=== PATIENT | male | born 1935 | race Caucasian/White ===

== ENCOUNTER 2021-11-07 08:55 | Outpatient (CLI) | payer MEDICARE, MEDICAID, SELFPAY ==
[2021-11-07 09:02] VITALS: BMI 24.0
[2021-11-07 09:47] VITALS: BP 148/66; PULSE 76; RESP 18; TEMP 36.9; O2SAT 97
[2021-11-07 11:10] VITALS: BP 150/72; PULSE 70; RESP 19; TEMP 36.7; O2SAT 98
== END 2021-11-07 08:56 | disposition home or self-care (01) ==
PROVIDERS: Visit Provider Nurse Practitioner
DX: U07.1 COVID-19 (principal)
CPT/HCPCS: 96365

== ENCOUNTER → 2023-07-08 15:39 | Outpatient (BNVA) | payer MEDICARE, MEDICAID, SELFPAY | PROVIDERS: PCP Family Medicine; Visit Provider Dermatology | DX: L82.1 Other seborrheic keratosis (principal); L57.0 Actinic keratosis; L57.8 Other skin changes due to chronic exposure to nonionizing radiation; L81.4 Other melanin hyperpigmentation; D23.112 Other benign neoplasm of skin of right lower eyelid, including canthus | CPT/HCPCS: 17000; 17003; 99213 ==

== ENCOUNTER 2024-07-14 17:37 | Inpatient (IN) | payer MEDICARE, MEDICAID, SELFPAY ==
[2024-07-14 18:03] VITALS: BP 163/76; PULSE 74; RESP 16; TEMP 36.7; O2SAT 96
--- NOTE | 2024-07-14 18:05 | XRR_ITS ---
PROCEDURE INFORMATION: Exam: XR Chest Exam date and time: 07/14/2024 10:00 PM Age: 88 years old Clinical indication: Chest wall pain; Additional info: Chest pain TECHNIQUE: Imaging protocol: Radiologic exam of the chest. Views: 1 view. COMPARISON: CR XR cervical spine 3V* [id number] 04/13/2024 12:26 PM FINDINGS: Lungs: No focal consolidation. Scattered calcified granulomas. Pleural spaces: No sizable pleural effusion. No pneumothorax. Heart/Mediastinum: Unremarkable cardiomediastinal silhouette. Bones/joints: There are moderate degenerative changes of the acromioclavicular joints. There are moderate degenerative changes of the glenohumeral joints. Soft tissues: Soft tissues are unremarkable as visualized. XR/XR chest 1V portable [id number] IMPRESSION: No acute findings.
--- NOTE | 2024-07-14 18:06 | P.HP_ITS ---
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 Blood counts checked in office showed decrease in hemoglobin of about 1.7 points from prior testing done about a week earlier. He has not had melena or hematochezia, but stool sample was positive for occult blood on testing. He additionally has developed new anginal symptoms with central chest pain radiating to his bilateral neck or so on the left with symptoms more persistent on the left side, triggered by exertion, relieved by rest starting on Friday, and since then has had 3 episodes. These are new. He has never had chest pain or pressure before. Does not have personal history of cardiac disease, although as mentioned has had some fatigability over the last several months, but otherwise no history of IL or stroke in himself. He does have history of IL and stroke in his first-degree relatives. He is a never smoker. He reports that ever since having COVID about a year ago he has had some mild dry cough which gets worse at night, sometimes coughs up some white thin foamy phlegm. Denies any aspiration with food or drink. Review of Systems Const: Reports: fatigue; Denies: fever(s), chills, body aches or malaise ENMT: Denies: throat pain or ear or mastoid pain Card: Reports: chest pain; Denies: edema, pre-syncope or dyspnea on exertion Resp: Denies: dyspnea, productive cough, change in phlegm color or hemoptysis GI: Denies: abdominal pain, nausea, vomiting, diarrhea, constipation, hematochezia or melena : Denies: flank pain, difficulty urinating, urinary frequency or hematuria Musc: Denies: back pain, joint swelling or joint redness Skin/Breast: Denies: rash or new lesions Neuro: Denies: headache(s) Medications/Allergies Home Medications Medication Instructions Recorded Confirmed Last Taken Type ibuprofen 200 mg capsule 200 mg PO Q6H PRN 04/25/21 04/25/21 Unknown History red yeast rice 600 mg capsule 600 mg PO DAILY 04/25/21 04/25/21 Unknown History Allergies Allergy/AdvReac Type Severity Reaction Status Date / Time cephalexin [From Keflex] Allergy lips Verified 04/25/21 15:45 swelling codeine Allergy N/V Verified 04/25/21 15:45 penicillin G Allergy lips swell Verified 04/25/21 15:45 PFSH Acute PFSH: Medical History Hyperlipidemia Arthritis Family History Other CAD (coronary artery disease) Cancer Diabetes Hypertension Social History Smoking and tobacco/nicotine status: never used tobacco/nicotine Physical Exam Narrative: Sitting up in chair. Accompanied by his family. Pleasant, conversant. Moderately hard of hearing. Const: COMMON NORMALS: patient oriented x3 and alert GENERAL APPEARANCE: cooperative ORIENTATION/CONSCIOUSNESS: Yes awake HENMT: COMMON NORMALS: oropharynx normal Neck/C-Spine: COMMON NORMALS: no JVD Resp: COMMON NORMALS: normal respiratory effort and clear to auscultation bilaterally AUSCULTATION: clear to auscultation bilaterally Cardio: COMMON NORMALS: no JVD, regular rhythm, S1 normal heart sound present, S2 normal heart sound present and No murmurs present (Cardio) RHYTHM: regular rhythm HEART SOUNDS: S1 normal heart sound present and S2 normal heart sound present GI: COMMON NORMALS: Normal to inspection, nondistended, normoactive bowel sounds present, Soft to palpation and non-tender PALPATION: Yes Soft to palpation Extremity: COMMON NORMALS: no joint enlargement and no pedal edema Neuro: COMMON NORMALS: patient oriented x3 and moves all extremities SENSORIUM/ORIENTATION: Yes alert Skin: COMMON NORMALS: no rashes or lesions noted GENERAL SKIN EXAM: no rashes or lesions noted A&P Assessment and plan (1) Angina pectoris: Assess possible unstable angina. Per history obtained from his family, developed several new episodes of angina, previously without cardiac issues, although has had fatigability over the preceding several months. 3 episodes since Friday. Central chest pain radiating to bilateral neck, worse on the left side. So far resolved by rest. Complete troponin EKG series. Obtain chest x- ray. Obtain D-dimer. Monitor on telemetry. Obtain echocardiogram. D-dimer reviewed, noted abnormal. Requesting CT angiogram chest as discussed with patient and family to assess for PE. He has also had some swelling in the right lower extremity, obtain venous duplex. Start on beta-stephanie, statin. Given 1 dose of 81 mg aspirin - At risk of bleeding, monitor for any worsening. Nitroglycerin as needed for chest pain symptoms. SCD for VTE prophylaxis. Discussed with cardiology. Appreciate consultation. (2) Acute anemia: Over 1 g decrease in hemoglobin over the last week. Acute anemia. Hemoccult positive stool. Was on ibuprofen and subsequently prednisone for crystal arthropathy. Was taking once daily omeprazole with ibuprofen. Additionally on tramadol. Discussed discontinue the above with suspected gastritis and/or PUD. PPI IV twice daily. For now bowel rest, sips chips, meds only by mouth. Reassess blood counts. He had been scheduled for EGD in 1 week on outpatient basis. Discussed consideration of further workup. In case more urgent cardiac studies will be needed with potential need for coronary angiography/intervention, a sooner endoscopy may be necessary prior to discharge. Otherwise if heart disease can be stabilized/not requiring urgent intervention, may benefit from continued Protonix therapy with follow-up EGD. Check iron studies. (3) Positive occult stool blood test: As above. (4) Elevated d-dimer: Elevated D-dimer, swelling of right lower extremity, dry cough. Assess venous duplex. Assess CTA chest as per discussion with patient and family. 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 Is supposed to be following up with orthopedics. Attestations Medical Necessity Statement*: Place in observation for additional assessment of new angina symptoms. Acute anemia, suspected GI blood loss. Diagnoses Angina pectoris I20.9 Acute anemia D64.9 Positive occult stool blood test R19.5 Elevated d-dimer R79.89
--- NOTE | 2024-07-14 18:46 | P.CONIM_ITS ---
Providers/Reason For Consult 2 Consulting Physician/Specialty*: HAILEY Dalal MD/cardiology Reason for Consult*: Patient with a chest pain, new onset and possible GI bleed Requesting Physician: Dr. Lawrence/Dr. Brito Attending Physician: Vick Brito Primary Care Provider: Cas Lawrence MD History of Present Illness History of Present Illness Kwabena Sherwood is a 88 year old male with a history of high blood pressure, dyslipidemia and gouty arthritis, started having chest pain since last Friday. He apparently had half a dozen episodes of chest pain. Each of these episodes are precipitated with activities. The pain is in the left side of the chest, radiated to the left shoulder and the left arm. Associated minimal shortness of breath. The pain may last for 45 minutes and then gradually subsides with rest. Intensity of the pain is mild, 2-3/10 . No other associated symptoms or radiation of pain. Patient has no previous history for coronary disease, myocardial infarction or congestive heart failure. Patient was found to have low hemoglobin recently by Dr. Lawrence. He has been taking ibuprofen for pseudogout. He was found to have hemoglobin around 10 a week ago. Today he had a repeat hemoglobin which was found to be around 9. He is currently off the ibuprofen. Apparently he had been diclofenac for a long time for this. Because of the GI irritation, this was taken off sometime ago. He was placed on some blood pressure medications few months ago. Patient took it only for couple of weeks and had to be discontinued because of side effects. According to him, he did not feel well. He has been taking red yeast rice for the dyslipidemia. The lipid profile is not available at this time. He has a strong family history of heart disease. 8 out of 10 of his siblings have some kind of heart problems. High blood pressure, diabetes runs in the family. Many of the family members including his granddaughter have permanent pacemaker. His father had a pacemaker as well. He denies any alcohol abuse or smoking abuse. No other substance abuse. Review of Systems 2 Narrative: CONSTITUTIONAL: No fever or chills. EYES: No blurring of vision or other visual disturbances lately. ENT: No hoarseness of voice, auditory disturbances or sore throat. Patient is hard of hearing. CARDIOVASCULAR: As mentioned above. RESPIRATORY: No significant cough. GASTROINTESTINAL: No hematemesis or melena. GENITOURINARY: No dysuria or hematuria. INTEGUMENTARY: No skin rashes or history of skin cancer. NEURO: No transient ischemic attacks or amaurosis. PSYCHIATRIC: No history of psychosis or major depression. HEMATOLOGIC: No bleeding disorders or significant anemia. ENDOCRINE: No history of polyuria or polydipsia. MUSCULOSKELETAL: No recent joint pain or swelling. ALLERGY/IMMUNOLOGY: As mentioned above. Medications/Allergies Home Medications Medication Instructions Recorded Confirmed Last Taken Type ibuprofen 200 mg capsule 200 mg PO Q6H PRN 04/25/21 04/25/21 Unknown History red yeast rice 600 mg capsule 600 mg PO DAILY 04/25/21 04/25/21 Unknown History Allergies Allergy/AdvReac Type Severity Reaction Status Date / Time cephalexin [From Keflex] Allergy lips Verified 04/25/21 15:45 swelling codeine Allergy N/V Verified 04/25/21 15:45 penicillin G Allergy lips swell Verified 04/25/21 15:45 PFSH Acute 2 PFSH: Medical History Hyperlipidemia Arthritis Family History Other CAD (coronary artery disease) Cancer Diabetes Hypertension Social History Smoking and tobacco/nicotine status: never used tobacco/nicotine Vitals/I&O/Wt Last Vital Signs Temp 98.0 F 07/14/24 18:03 Pulse 74 07/14/24 18:03 Resp 16 07/14/24 18:03 BP 163/76 07/14/24 18:03 Pulse Ox 96 07/14/24 18:03 O2 Del Method Room Air 07/14/24 18:03 Physical Exam 2 Narrative: GENERAL: The patient is alert and oriented times three. Not in any acute distress. HEENT: No significant pallor, icterus or lymphadenopathy.Oral cavity: There are no mucous membrane lesions. NECK: Trachea appears to be central. No masses noted. No JVD or thyromegaly appreciated. RESPIRATORY: Chest is symmetrical. No intercostals muscle retraction or any accessory muscle activation. There is no chest wall tenderness. Breath sounds are heard bilaterally. No rales or rhonchi heard. No evidence of any consolidation. BREASTS: Deferred. HEART: The heart sounds are normal. No S3 or S4. Short systolic murmur the left sternal border. No diastolic murmurs.]. No pericardial rub ABDOMEN: No vessel pulsations or distention. No tenderness. No organomegaly appreciated. Bowel sounds are normally heard. : Deferred. RECTAL: Deferred. LYMPHATIC: No lymphadenopathy noted in the neck. EXTREMITIES: No edema or cyanosis. No clubbing. MUSCULOSKELETAL: No acute joint deformities or swelling SKIN: There are no significant rashes or ecchymosis NEUROPSYCHIATRIC: The patient is alert and oriented x3. Appears to be in a good mood. No tremors or rigidity noted. Data 07/14/24 19:11 A&P Assessment and plan (1) New-onset angina: The patient's symptoms are suggestive of an unstable angina. Will go ahead and do an EKG today to evaluate any ischemic changes. Echocardiogram would be helpful to evaluate LV function and rule out any other pathology. Serial cardiac enzymes may be appropriate. Patient may be treated with topical nitrates, beta-stephanie, statin and aspirin. (2) Benign essential hypertension with target blood pressure below 140/90: Nitropaste and beta-stephanie as mentioned above (3) Dyslipidemia: Lipitor 40 mg p.o. now and daily (4) Blood loss anemia: Will be closely monitoring the hemoglobin and hematocrit. Consider GI workup, if cardiac symptoms are stable (5) GI bleed: Possible related to gastritis. Other etiologies cannot be excluded. May benefit from an upper endoscopy. Qualifiers: GI bleed type/associated pathology: unspecified gastrointestinal hemorrhage type Qualified Code(s): K92.2 - Gastrointestinal hemorrhage, unspecified Plan Based on the clinical progress and the results of the above, further recommendations will be made. Thank you for the opportunity to evaluate this patient and make these recommendations. EKG now Echocardiogram Basic labs Cardiac enzyme Consult Attestations 2 Medical Necessity Statement: History Coding Level of Care Code 10815 Diagnoses New-onset angina I20.9 Benign essential hypertension with target blood pressure below 140/90 I10 Dyslipidemia E78.5 Blood loss anemia D50.0 Gastrointestinal hemorrhage, unspecified gastrointestinal hemorrhage type K92.2 GI bleed type/associated pathology: unspecified gastrointestinal hemorrhage type
--- NOTE | 2024-07-14 19:02 | ECG_ITS ---
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 Measurements Intervals [place] Rate: 61 P: 70 NM: 176 QRS: 66 QRSD: 87 T: 53 QT: 379 QTc: 382 Interpretive Statements SINUS RHYTHM No previous ECG available for comparison Electronically Signed On 07-15-2024 9:03:03 CDT by Jeremy Dalal M.D. [id number]
--- NOTE | 2024-07-14 19:03 | USCV_ITS ---
Kwabena Sherwood Age: 88 Gender: M : 1935 Exam Date: 07/14/2024 19:34 Ordering Phys: Vick Brito MD Technologist: KIKI Exam Location: [facility] [place] Indication: angina BP: 163 / 76 HR: 68 Rhythm: Sinus Technical Quality: Adequate MEASUREMENTS (Male / Female) Normal Values 2D ECHO LV Diastolic Diameter PLAX 3.4 cm 4.2 - 5.9 / 3.9 - 5.3 cm IVS Diastolic Thickness 1.5 cm 0.6 - 1.0 / 0.6 - 0.9 cm IVS Systolic Thickness 1.7 cm LVPW Diastolic Thickness 1.1 cm 0.6 - 1.0 / 0.6 - 0.9 cm LVPW Systolic Thickness 1.4 cm LVOT Diameter 2.3 cm LV Ejection Fraction 2D Teich 58.9 % LV Ejection Fraction MOD 4C 54.9 % LV Ejection Fraction MOD 2C 64.9 % LV Ejection Fraction 2C AL 64.7 % LA Diameter 3.9 cm Aorta at Sinotubular Diameter 3.3 cm IVC Diameter 1.6 cm M-MODE LA Ao Ratio MM 0.9 AV Cusp Separation MM 2.0 cm DOPPLER AV Peak Velocity 143.0 cm/s LVOT Peak Velocity 107.0 cm/s AV Area Cont Eq vti 3.2 cm squared AV Area Cont Eq pk 3.0 cm squared MV Peak Velocity 131.0 cm/s MV Area PHT 3.0 cm squared Mitral E to A Ratio 1.2 TV Peak Velocity 306.5 cm/s TR Peak Velocity 313.0 cm/s TR Peak Gradient 39.2 mmHg TV Peak E Velocity 43.0 cm/s Right Atrial Pressure 3.0 mmHg Pulmonary Artery Systolic Pressu 42.2 mmHg PV Peak Velocity 102.0 cm/s FINDINGS Left Ventricle Normal left ventricular size and systolic function, EF 55%.mild left ventricular hypertrophy. Grade III/IV diastolic dysfunction (restrictive filling pattern), severely elevated filling pressures. Relative hypokinesis of the anteroapical segment Right Ventricle The right ventricle is normal in size and function. Right Atrium The right atrium is normal in size. Left Atrium The left atrium is normal in size. Mitral Valve Moderate mitral valve regurgitation. Thickened mitral valve. Aortic Valve Thickened aortic valve. Trace to mild mild aortic valve regurgitation. Tricuspid Valve Moderately severe tricuspid regurgitation Pulmonic Valve No gross abnormalities noted Pericardium Normal pericardium without effusion. Aorta Normal ascending aorta dimension. IVC Normal inferior vena cava. CONCLUSIONS Normal left ventricular size and systolic function, EF 55%.mild left ventricular hypertrophy. Grade III/IV diastolic dysfunction (restrictive filling pattern), severely elevated filling pressures. Relative hypokinesis of the anteroapical segment. Moderate mitral valve regurgitation. Thickened mitral valve. Thickened aortic valve. Trace to mild mild aortic valve regurgitation. Moderately severe tricuspid regurgitation. Mild pulmonary hypertension with an estimated pulmonary artery peak systolic pressure of 42 mmHg There is no pericardial effusion. There are no intracardiac masses. No similar previous studies are available for comparison Dr Jeremy Dalal MD FACC (Electronically Signed) Final Date: 15 July 2024 07:54 S
[2024-07-14 19:20] VITALS: BP 160/70; RESP 17; TEMP 36.6; O2SAT 97
[2024-07-14 19:40] LABS: Basophils % 0.1 %; Hematocrit 30.8 % (37-53); Lymphocytes # 0.6 10^3/uL (0.8-4.8); Lymphocytes % 7.5 %; Mean Corpuscular HGB Conc 32.1 g/dL (30-55); Mean Corpuscular Hemoglobin 29.1 pg (27-33); Mean Corpuscular Volume 90.6 fl (82-101); Mean Platelet Volume 9.8 fL (7.4-10.4); Monocytes # 0.3 10^3/uL (0.2-0.9); Monocytes % 3.3 %; Neutrophils # 6.65 10^3/uL (1.8-7.7); Neutrophils % 88.2 %; Nucleated Red Blood Cells % 0 %; Platelet Count 318 10^3/cmm (157-399); Red Cell Distribution Width 13.8 % (12.1-15.1); White Blood Count 7.55 10^3/uL (3.29-11.43)
[2024-07-14] MEDS: pantoprazole 40 mg SDV IVP (19:45)
[2024-07-14 19:51] LABS: D Dimer 1.82 ug/mLFEU (0-0.59)
[2024-07-14 19:53] LABS: Troponin(5th) Baseline 20 ng/L (0-15)
--- NOTE | 2024-07-14 19:55 | CTR_ITS ---
PROCEDURE INFORMATION: Exam: CTA Chest With Contrast Exam date and time: 07/14/2024 11:58 PM Age: 88 years old Clinical indication: Shortness of breath; Additional info: Assess for pe TECHNIQUE: Imaging protocol: Computed tomographic angiography of the chest with contrast. Exam focused on the arteries. 3D rendering (Not supervised by radiologist): MIP and/or 3D reconstructed images were created by the technologist. Radiation optimization: All CT scans at this facility use at least one of these dose optimization techniques: automated exposure control; mA and/or kV adjustment per patient size (includes targeted exams where dose is matched to clinical indication); or iterative reconstruction. Contrast material: OMNI 350; Contrast volume: 100 ml; Contrast route: INTRAVENOUS (IV); COMPARISON: CR (CHEST, ) 07/14/2024 10:00 PM RADIATION DOSE METRICS: Total DLP (mGy-cm): 308.01 FINDINGS: Pulmonary arteries: No evidence of pulmonary embolism. Artifact noted within bilateral lower subsegmental branches due to motion. Aorta: The aorta is normal in caliber. No aneurysm. The aorta demonstrates moderate atherosclerotic calcification. Thyroid: The visualized thyroid gland is normal. Trachea: The central airways are patent. Scattered impacted small airways. Biapical scarring. Scattered calcified granulomas. Lungs: Bibasilar atelectasis. Pleural spaces: No significant pleural effusion. No pneumothorax. Heart: Mild aortic valvular calcifications. There is mild calcification of the mitral valve annulus. The heart is normal in size. No pericardial effusion. Coronary arteries: There are severe coronary artery calcifications. Lymph nodes: No enlarged lymph nodes by size criteria. Scattered calcified mediastinal lymph nodes, likely sequela of prior granulomatous organism exposure. 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 Severe left acromioclavicular joint degeneration.The spine demonstrates mild degenerative changes at multiple levels. Soft tissues: Soft tissues are unremarkable as visualized. CT/CT angio chest PE protcl [id number] IMPRESSION: No evidence of pulmonary embolism.
--- NOTE | 2024-07-14 19:55 | USCV_ITS ---
Kwabena Sherwood Age: 88 Gender: M : 1935 Exam Date: 07/14/2024 20:40 Ordering Phys: Vick Brito MD Technologist: KIKI Exam Location: [facility] [place] Indication: assess for DVT HISTORY: assess for DVT There is no edema, erythema, or complaint of pain. PROCEDURES: Venous duplex imaging was performed in bilateral lower extremities. The following venous structures were evaluated: common femoral vein, profunda vein, proximal portion of the greater saphenous vein, superficial femoral vein, and the popliteal vein. In addition, the posterior tibial and peroneal veins were evaluated. Serial compression, augmentation maneuvers, and spectral Doppler flow evaluation were performed, which were normal. Bilaterally, the common femoral, superficial femoral, profunda femoral, popliteal, posterior tibial, greater saphenous veins, and the peroneal veins were identified and interrogated in the standard fashion. These veins were found to be easily compressible with spontaneous blood flow. No evidence of thrombus noted. CONCLUSIONS No evidence of right lower extremity DVT. No evidence of left lower extremity DVT. Anshu Diallo MD (Electronically Signed) Final Date: 15 July 2024 10:03 S
[2024-07-14 20:34] LABS: Ferritin 483 ng/mL (30-400); Iron 39 ug/dL (59-158); Percent Saturation 19.7 % (20-50); Total Iron Binding Capacity 197 mcg/dl; Unsaturated Iron Binding 158 ug/dL (112-347)
[2024-07-14 21:56] LABS: Anion Gap 18.8 (5-19); Blood Urea Nitrogen 24 mg/dL (8-23); Calcium 8.9 mg/dL (8.5-10.5); Carbon Dioxide 25 mmol/L (22-29); Chloride 94 mmol/L (98-107); Glucose 148 mg/dL (65-115); Osmolality Calculated 283 mOsm/kg (285-295); Potassium 4.8 mmol/L (3.5-5.1); Sodium 133 mmol/L (136-145)
[2024-07-14 22:00] VITALS: PULSE 69
--- NOTE | 2024-07-14 22:12 | ECG_ITS ---
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 Measurements Intervals [place] Rate: 58 P: 65 AL: 192 QRS: 64 QRSD: 91 T: 43 QT: 385 QTc: 379 Interpretive Statements SINUS BRADYCARDIA Compared to ECG 07/14/2024 20:21:16 Sinus rhythm no longer present Electronically Signed On 07-16-2024 18:20:07 CDT by Jeremy Dalal M.D. [id number]
[2024-07-15] VITALS (10 sets, daily range): BP systolic 118–179; BP diastolic 50–79; PULSE 47–83; RESP 16–18; TEMP 36.3–36.9; O2SAT 95–97
[2024-07-15] MEDS: iohexol 350 mg/mL 500 mL Btl (per mL) IV (00:25)
--- NOTE | 2024-07-15 00:37 | ECG_ITS ---
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 Measurements Intervals [place] Rate: 56 P: 69 VA: 199 QRS: 72 QRSD: 93 T: 46 QT: 396 QTc: 383 Interpretive Statements SINUS BRADYCARDIA Compared to ECG 07/14/2024 22:12:32 No significant changes Electronically Signed On 07-16-2024 18:20:23 CDT by Jeremy Dalal M.D. [email or web address] Groupuniversity of mississippi medical centerStima Systemsregency hospital companyMesMateriaux/store/[id number]
[2024-07-15 03:55] LABS: Basophils % 0.1 %; Eosinophils % 0.1 %; Lymphocytes # 1.1 10^3/uL (0.8-4.8); Lymphocytes % 13.6 %; Mean Corpuscular HGB Conc 32.1 g/dL (30-55); Mean Corpuscular Hemoglobin 29.2 pg (27-33); Mean Corpuscular Volume 90.9 fl (82-101); Monocytes # 0.7 10^3/uL (0.2-0.9); Monocytes % 9.4 %; Neutrophils # 5.91 10^3/uL (1.8-7.7); Neutrophils % 76.2 %; Nucleated Red Blood Cells % 0 %; Platelet Count 280 10^3/cmm (157-399); Red Blood Count 3.08 10^6/uL (3.85-5.65); Red Cell Distribution Width 14.1 % (12.1-15.1); White Blood Count 7.77 10^3/uL (3.29-11.43)
[2024-07-15 04:15] LABS: Alanine Aminotransferase 13 U/L (0-41); Albumin Level 3.5 g/dL (3.5-5.2); Alkaline Phosphatase 68 U/L (40-130); Anion Gap 17.5 (5-19); Aspartate Amino Transferase 20 U/L (0-40); Blood Urea Nitrogen 22 mg/dL (8-23); Calcium 8.5 mg/dL (8.5-10.5); Carbon Dioxide 26 mmol/L (22-29); Chloride 95 mmol/L (98-107); Creatinine Clr Calc Pharmacy 46.1667; Globulin 3.2 g/dL (1.3-4.6); Glucose 154 mg/dL (65-115); Osmolality Calculated 284 mOsm/kg (285-295); Potassium 4.5 mmol/L (3.5-5.1); Sodium 134 mmol/L (136-145); Total Bilirubin 0.3 mg/dL (0.15-1.2); Total Protein 6.7 g/dL (6.6-8.7)
[2024-07-15] MEDS: pantoprazole 40 mg SDV IVP ×2 (08:34→20:11)
--- NOTE | 2024-07-15 08:41 | ECG_ITS ---
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 Interpretive Statements NAME OF STUDY: LEXISCAN SESTAMIBI STRESS TEST INDICATION: Chest Pain, PROCEDURE: At the baseline, the EKG revealed possibly normal sinus rhythm with normal ST Ts. Heavy baseline artifact.. The baseline heart was 65 bpm with a blood pressue of 162/79 mm of Hg Lexiscan was infused over a period of 20 seconds. A total of 0.4 milligrams of Lexiscan was infused. The stress phase was continued for a total of 5 minutes. Heart rate at the end of the stress phase was 77 bpm with a blood pressure 154/57 mm of Hg. The EKG at the peak infusion revealed no significant changes. Sestamibi was injected 20 seconds after the Lexiscan infusion. Heart rate at the end of the recovery phase was 73 bpm with a blood pressure of 153/61 mm of Hg. CONCLUSION: 1. No significant EKG changes with the LexiScan infusion 2. No LexiScan induced chest pain or cardiac arrhythmia 3. Normal blood pressure and heart rate response 4. Sestamibi/sestamibi perfusion scan pending; see separate report. Electronically Signed On 07-22-2024 22:14:56 CDT by Jeremy Dalal M.D. [email or web address]elake[facility].[employer]/store/[id number]
--- NOTE | 2024-07-15 08:45 | NMCV_ITS ---
NM mary perf SPECT r/s* [id number] Kwabena Sherwood Age: 88 Gender: M : 1935 Exam Date: 07/15/2024 09:07 Ordering Phys: Jeremy Dalal MD ([email or web address]) Technologist: GREG Hines Exam Location: [facility] Indications: CP STRESS TEST Please [facility] IMAGE PROTOCOL Rest/Stress 1 Lexiscan Day Radiopharmaceutical Dose (mCi) Administration Site Administered by Rest: Tc-99m 10.9 IV GREG Hines Sestamibi Stress:Tc-99m 32.5 IV GREG Hines Sestamibi Rest: 15-Jul-2024 60 Discovery 630 Stress: 15-Jul-2024 30 Discovery 630 0.4mg Lexiscan. Supine position only as patient was unable to lay prone. SPECT RESULTS Technical Quality: Good Raw Data Analysis: Normal Image Corrections: No attenuation or motion correction applied Summed Stress Score: 3 Summed Rest Score: 0 Summed Difference Score: 3 PERFUSION FINDINGS Small to moderate area of slightly decreased tracer uptake involving the mid and apical inferior and mid inferoseptal region. Significant reversibility was noted in this region and rest. FUNCTIONAL RESULTS (calculated via Gated SPECT) Stress Image LV EF (%): 67 Stress EDV (mL):73 TID: 1.17 Stress ESV (mL):24 FUNCTIONAL FINDINGS: Segmental wall motion analysis revealing no gross wall motion abnormalities IMPRESSIONS 1. Myocardial perfusion imaging revealing small to moderate area of reversible defect involving the inferior and inferoseptal region suggesting ischemia in the distribution of the right coronary artery 2. Normal LV ejection fraction of 67%. 3. LV wall motion analysis revealing no gross wall motion abnormalities. 4. Normal LV volume Slightly elevated transient ischemic dilatation ratio (1.17 ) also may suggest endocardial ischemia Dr Jeremy Dalal MD [facility] (Electronically Signed) Final Date: 15 July 2024 12:44 S
[2024-07-15] MEDS: nitroglycerin 1 gm/inch oint Pkt 1 INCH TOPICAL (08:57)
--- NOTE | 2024-07-15 09:00 | PC.NURSE ---
[id number]- Called Dr Dalal. Gave last pt vitals, asked if he wanted Nitro cream patch and Metoprolol given as ordered. He said to hold the Metoprolol for now, but to give the Nitro as it should be fine. I repeated back to him to ensure I understood and updated pt family.
[2024-07-15] MEDS: regadenoson 0.4 Mg/5 ml Syringe IVP (10:01)
--- NOTE | 2024-07-15 13:56 | PM.PN ---
Subjective Subjective: Patient is doing okay. Has not had any recurrence of chest pain since the hospital admission. He had some bradycardia with the beta-stephanie. So the metoprolol was held this morning. Blood pressure is elevated with a systolic in the 160s and 170s. Medications: Medication Review Details: Current Medications Acetaminophen (Acetaminophen 325 Mg Tablet) 650 mg PO Q6H PRN PRN Reason: Mild/Mod Pain Or Temp >/= 101 Aminophylline (Aminophylline 25 Mg/Ml Sdv 10 Ml) 25 mg IVP Q2M PRN PRN Reason: see dose instructions Stop: 07/16/24 09:20 Amlodipine Besylate (Amlodipine 5 Mg Tablet) 5 mg PO DAILY [facility] Atorvastatin Calcium (Atorvastatin 40 Mg Tablet) 40 mg PO BEDTIME [facility] Last Admin: 07/14/24 20:47 Dose: Not Given Isosorbide Mononitrate (Isosorbide Mononitrate 20 Mg Tablet) 60 mg PO DAILY [facility] Nitroglycerin (Nitroglycerin 0.4 Mg Sublingual Tablet) 0.4 mg SUBLINGUAL Q5M PRN PRN Reason: CHEST PAIN Nitroglycerin (Nitroglycerin 0.4 Mg Sublingual Tablet) 0.4 mg SUBLINGUAL Q5M PRN PRN Reason: CHEST PAIN Stop: 07/16/24 09:20 Ondansetron HCl (Ondansetron 2 Mg/Ml Sdv 2 Ml) 4 mg IVP Q8H PRN PRN Reason: vomiting, or N/V if npo Ondansetron HCl (Ondansetron 2 Mg/Ml Sdv 2 Ml) 4 mg IVP Q2M PRN PRN Reason: NAUSEA Pantoprazole Sodium (Pantoprazole 40 Mg Sdv) 40 mg IVP Q12H [facility] Last Admin: 07/15/24 08:34 Dose: 40 mg Vitals/I&O/Wt Last Vital Signs Temp 98.4 F 07/15/24 11:52 Pulse 58 L 07/15/24 11:52 Resp 18 07/15/24 11:52 BP 171/79 07/15/24 11:52 Pulse Ox 95 07/15/24 11:52 O2 Del Method Room Air 07/15/24 11:52 07/14/24 07/15/24 07/15/24 22:59 06:59 14:59 Intake Total 0 / 0 0 / 0 Balance 0 / 0 0 / 0 Weight last 48 hrs Weight 140 lb 8 oz Weight 147 lb Physical Exam Narrative: GENERAL: The patient is alert and oriented times three. Not in any acute distress. HEENT: No significant pallor, icterus or lymphadenopathy.Oral cavity: There are no mucous membrane lesions. NECK: Trachea appears to be central. No masses noted. No JVD or thyromegaly appreciated. RESPIRATORY: Chest is symmetrical. No intercostals muscle retraction or any accessory muscle activation. There is no chest wall tenderness. Breath sounds are heard bilaterally. No rales or rhonchi heard. No evidence of any consolidation. BREASTS: Deferred. HEART: The heart sounds are normal. No S3 or S4. Short systolic murmur the left sternal border. No diastolic murmurs.]. No pericardial rub ABDOMEN: No vessel pulsations or distention. No tenderness. No organomegaly appreciated. Bowel sounds are normally heard. : Deferred. RECTAL: Deferred. LYMPHATIC: No lymphadenopathy noted in the neck. EXTREMITIES: No edema or cyanosis. No clubbing. MUSCULOSKELETAL: No acute joint deformities or swelling SKIN: There are no significant rashes or ecchymosis NEUROPSYCHIATRIC: The patient is alert and oriented x3. Appears to be in a good mood. No tremors or rigidity noted. Data 07/15/24 03:31 07/15/24 03:31 Other Labs: Laboratory Last Values WBC 7.77 10^3/uL (3.29-11.43) 07/15/24 03:31 RBC 3.08 10^6/uL (3.85-5.65) L 07/15/24 03:31 Hgb 9.00 g/dL (11.27-16.99) L 07/15/24 03:31 Hct 28.0 % (37-53) L 07/15/24 03:31 MCV 90.9 fl (82-101) 07/15/24 03:31 MCH 29.2 pg (27-33) 07/15/24 03:31 MCHC 32.1 g/dL (30-55) 07/15/24 03:31 RDW 14.1 % (12.1-15.1) 07/15/24 03:31 Plt Count 280 10^3/cmm (157-399) 07/15/24 03:31 MPV 10.0 fL (7.4-10.4) 07/15/24 03:31 Neut % (Auto) 76.2 % 07/15/24 03:31 Lymph % (Auto) 13.6 % 07/15/24 03:31 [place] % (Auto) 9.4 % 07/15/24 03:31 Eos % (Auto) 0.1 % 07/15/24 03:31 Baso % (Auto) 0.1 % 07/15/24 03:31 Neut # (Auto) 5.91 10^3/uL (1.8-7.7) 07/15/24 03:31 Lymph # (Auto) 1.1 10^3/uL (0.8-4.8) 07/15/24 03:31 [place] # (Auto) 0.7 10^3/uL (0.2-0.9) 07/15/24 03:31 Eos # (Auto) 0.0 10^3/uL (0.0-0.8) 07/15/24 03:31 Baso # (Auto) 0.0 10^3/uL (0.0-0.1) 07/15/24 03:31 Nucleated RBC % (auto) 0 % 07/15/24 03:31 Nucleated RBCs # 0.0 /100WBC 07/15/24 03:31 D-Dimer 1.82 ug/mLFEU (0-0.59) H 07/14/24 19:11 Sodium 134 mmol/L (136-145) L 07/15/24 03:31 Potassium 4.5 mmol/L (3.5-5.1) 07/15/24 03:31 Chloride 95 mmol/L (98-107) L 07/15/24 03:31 Carbon Dioxide 26 mmol/L (22-29) 07/15/24 03:31 Anion Gap 17.5 (5-19) 07/15/24 03:31 BUN 22 mg/dL (8-23) 07/15/24 03:31 Creatinine 1.1 mg/dL (0.7-1.2) 07/15/24 03:31 GFR Calculation Not Reportable 07/15/24 03:31 Glucose 154 mg/dL (65-115) H 07/15/24 03:31 Calculated Osmolality 284 mOsm/kg (285-295) L 07/15/24 03:31 Calcium 8.5 mg/dL (8.5-10.5) 07/15/24 03:31 Iron 39 ug/dL (59-158) L 07/14/24 19:11 TIBC 197 mcg/dl 07/14/24 19:11 % Saturation 19.7 % (20-50) L 07/14/24 19:11 Unsat Iron Binding 158 ug/dL (112-347) 07/14/24 19:11 Ferritin 483 ng/mL (30-400) H 07/14/24 19:11 Total Bilirubin 0.3 mg/dL (0.15-1.2) 07/15/24 03:31 AST 20 U/L (0-40) 07/15/24 03:31 ALT 13 U/L (0-41) 07/15/24 03:31 Alkaline Phosphatase 68 U/L (40-130) 07/15/24 03:31 Troponin T Baseline 20 ng/L (0-15) H 07/14/24 19:11 Troponin T 120 Minute 20.50 ng/L (0-15) H 07/14/24 21:26 Delta Troponin T 0.50 ABS# (0-10) 07/14/24 21:26 Troponin T Hi Sens 6Hr 20.20 ng/L (0-15) H 07/15/24 01:00 Troponin T Hi Sens 6Hr Delta 0.20 ng/L (0-12) 07/15/24 01:00 Total Protein 6.7 g/dL (6.6-8.7) 07/15/24 03:31 Albumin 3.5 g/dL (3.5-5.2) 07/15/24 03:31 Globulin 3.2 g/dL (1.3-4.6) 07/15/24 03:31 Other data: Myocardial perfusion imaging from 07/15/2024 1. Myocardial perfusion imaging revealing small to moderate area of reversible defect involving the inferior and inferoseptal region suggesting ischemia in the distribution of the right coronary artery 2. Normal LV ejection fraction of 67%. 3. LV wall motion analysis revealing no gross wall motion abnormalities. 4. Normal LV volume Slightly elevated transient ischemic dilatation ratio (1.17 ) also may suggest endocardial ischemia Echocardiogram from 07/06/2024 Normal left ventricular size and systolic function, EF 55%.mild left ventricular hypertrophy. Grade III/IV diastolic dysfunction (restrictive filling pattern), severely elevated filling pressures. Relative hypokinesis of the anteroapical segment. Moderate mitral valve regurgitation. Thickened mitral valve. Thickened aortic valve. Trace to mild mild aortic valve regurgitation. Moderately severe tricuspid regurgitation. Mild pulmonary hypertension with an estimated pulmonary artery peak systolic pressure of 42 mmHg There is no pericardial effusion. There are no intracardiac masses. No similar previous studies are available for comparison A&P Assessment and plan (1) New-onset angina: The patient had echocardiogram which revealed normal LV size and ejection fraction. Relative hypokinesia of the apical septum. Had a Myocardial perfusion imaging today. Was found to have a small area of ischemia. Apparently the patient has not had a recurrence of chest pain since the hospital admission. He seems to respond to the medication (2) Benign essential hypertension with target blood pressure below 140/90: I may change the Nitropaste to isosorbide mononitrate 60 mg p.o. daily. For better control of the blood pressure, I may start him on amlodipine 5 mg p.o. now and daily. The blood pressure will be closely monitored. (3) Dyslipidemia: Lipitor 40 mg p.o. now and daily (4) Blood loss anemia: The hemoglobin continues to drop. At this point, it may be appropriate to do a GI workup to evaluate for any active bleed. (5) GI bleed: Possible related to gastritis. Other etiologies cannot be excluded. May benefit from an upper endoscopy. Since the patient's ischemic burden is low, it might be appropriate to go ahead with the endoscopy and decide on further management. Qualifiers: GI bleed type/associated pathology: unspecified gastrointestinal hemorrhage type Qualified Code(s): K92.2 - Gastrointestinal hemorrhage, unspecified Plan Discussed with the Dr. Brito, the patient and his family about the current status and treatment options. Because of the continued drop in the hemoglobin and the fact that he has no recurrence of chest pain, a shared decision was made to go ahead with the GI workup to evaluate for any ongoing GI bleed. If he has no evidence of any active bleed, we may consider doing a cardiac catheterization to further evaluate the coronary status and decide on further management. The risk and benefits were discussed in detail with the patient and family which they understood well and concurred with this [facility] Statement*: Patient requires continued hospital stay for close monitoring and further management Coding Level of Care Code 58374 Diagnoses New-onset angina I20.9 Benign essential hypertension with target blood pressure below 140/90 I10 Dyslipidemia E78.5 Blood loss anemia D50.0 Gastrointestinal hemorrhage, unspecified gastrointestinal hemorrhage type K92.2 GI bleed type/associated pathology: unspecified gastrointestinal hemorrhage type
[2024-07-15] MEDS: amlodipine 5 mg Tablet PO (14:01)
[2024-07-15] MEDS: isosorbide mononitrate 20 mg Tablet 60 MG PO (14:01)
--- NOTE | 2024-07-15 14:16 | PM.PN ---
Subjective Subjective: He is doing okay after stress test. Denies currently having chest pain or pressure. Denies hematochezia. Vitals/I&O/Wt Last Vital Signs Temp 98.4 F 07/15/24 11:52 Pulse 58 L 07/15/24 11:52 Resp 18 07/15/24 11:52 BP 171/79 07/15/24 11:52 Pulse Ox 95 07/15/24 11:52 O2 Del Method Room Air 07/15/24 11:52 07/14/24 07/15/24 07/15/24 22:59 06:59 14:59 Intake Total 0 / 0 0 / 0 Balance 0 / 0 0 / 0 Weight last 48 hrs Weight 63.73 kg Weight 66.678 kg Physical Exam Narrative: Sitting up in bed. Accompanied by his granddaughter. Pleasant, conversant. Moderately hard of hearing. Const: COMMON NORMALS: patient oriented x3 and alert GENERAL APPEARANCE: cooperative ORIENTATION/CONSCIOUSNESS: Yes awake HENMT: COMMON NORMALS: oropharynx normal Neck/C-Spine: COMMON NORMALS: no JVD Resp: COMMON NORMALS: normal respiratory effort and clear to auscultation bilaterally AUSCULTATION: clear to auscultation bilaterally Cardio: COMMON NORMALS: no JVD, regular rhythm, S1 normal heart sound present, S2 normal heart sound present and No murmurs present (Cardio) RHYTHM: regular rhythm HEART SOUNDS: S1 normal heart sound present and S2 normal heart sound present GI: COMMON NORMALS: Normal to inspection, nondistended, normoactive bowel sounds present, Soft to palpation and non-tender PALPATION: Yes Soft to palpation Extremity: COMMON NORMALS: no joint enlargement and no pedal edema Neuro: COMMON NORMALS: patient oriented x3 and moves all extremities SENSORIUM/ORIENTATION: Yes alert Skin: COMMON NORMALS: no rashes or lesions noted GENERAL SKIN EXAM: no rashes or lesions noted Data 07/15/24 03:31 07/15/24 03:31 A&P Assessment and plan (1) Angina pectoris: Reviewed echocardiogram, abnormal echo with grade 3 diastolic dysfunction, severe elevation of filling pressures. Relative hypokinesis of anterior apical segment. Moderate MVR. Trace to mild AVR. Moderately severe TVR. Mild pulmonary hypertension, RVSP 42 mmHg. Reviewed vitals, CBC, hemoglobin noted with further decrease down to 9. Platelets reviewed, normal. D-dimer reviewed, abnormal, CTA reviewed, no PE. Reviewed troponin series. Reviewed cardiology note, discussed with square cutter. He underwent stress testing, with finding of mild to moderate area of reversibility suggestive of ischemia in the distribution of RCA. Discussed with patient and his family difficulties with regards to coronary disease needing further evaluation management which may increase risk of bleeding further in case of needing intervention, stenting, dual antiplatelet which she would then need to be able to tolerate. On discussion with cardiology he was reevaluated again with consideration of undergoing endoscopy. He has not had any further chest pain since being in the hospital. No chest pain during stress test. May proceed to stress testing with usual precautions. Discussed with surgery, pending assessment. Continue statin. Metoprolol was discontinued this morning due to bradycardia. Nitroglycerin as needed for chest pain. He was started on long-acting nitrate with Imdur. Monitor for risk of hypotension with acute anemia, GI bleeding. SCD for VTE prophylaxis. Discussed with nursing, nurse outreach case manager. (2) Acute anemia: Reviewed hemoglobin, platelets. Platelets normal. Hemoglobin was further decreased down to 9. No hematochezia. He states he had had a colonoscopy several years ago. Never had an EGD. Suspected PUD and/or possibly gastritis secondary to NSAIDs, corticosteroid, also on tramadol, also was taking fish oil. Discussed again discontinuation of all these medicines. Continue IV PPI twice daily. As above discussed with cardiology, discussed with surgery, pending assessment, consideration of endoscopic evaluation for any treatable bleeding lesion. Reassess blood counts. He had originally been scheduled for EGD in 1 week on outpatient basis. Discussed consideration of further workup. In case more urgent cardiac studies will be needed with potential need for coronary angiography/intervention, a sooner endoscopy may be necessary prior to discharge. Otherwise if heart disease can be stabilized/not requiring urgent intervention, may benefit from continued Protonix therapy with follow-up EGD. Reviewed iron studies. Mild iron deficiency anemia. (3) Positive occult stool blood test: As above. (4) Elevated d-dimer: Possibly secondary to suspected GI bleeding. Reviewed CT angiogram, no PE. Reviewed lower extremity duplex study, negative for DVT. 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 Is supposed to be following up with orthopedics. Attestations Medical Necessity Statement*: Admission of over 2 midnights is needed for assessment management of acute blood loss anemia with GI bleeding, as well as cardiac ischemia requiring further evaluation and treatment with endoscopy if possible prior to further cardiac evaluation with coronary angiography with possible cardiac intervention, at risk of bleeding, further cardiac complication. Diagnoses Angina pectoris I20.9 Acute anemia D64.9 Positive occult stool blood test R19.5 Elevated d-dimer R79.89
[2024-07-15] MEDS: acetaminophen 325 mg Tablet 650 MG PO (15:39)
--- NOTE | 2024-07-15 15:51 | P.CONIM_ITS ---
Providers/Reason For Consult 2 Consulting Physician/Specialty*: Dr. Ocampo general surgery Reason for Consult*: GI bleed Attending Physician: Vick Brito Primary Care Provider: Cas Lawrence MD History of Present Illness History of Present Illness Kwabena Sherwood is a 88 year old male past medical history significant for coronary artery disease who presented with chest pain. Admitted to medicine worked up by cardiology. He has an abnormal stress test, for which she may need to undergo Auto Radiator Specialist in the near future. Surgery consulted due to hemoglobin drop of about 1 g in 5 days and a positive Hemoccult. Cardiology is worried about a GI bleed that might get worse with antiplatelet therapy or anticoagulation and they have asked for endoscopic workup. Patient denies any melena, hematochezia, or any changes in bowel habits. Currently not complaining of any chest pain. No prior scopes. Medications/Allergies Home Medications Medication Instructions Recorded Confirmed Last Taken Type red yeast rice 600 mg capsule 600 mg PO DAILY 04/25/21 07/15/24 07/14/24 History acetaminophen 325 mg tablet 325 mg PO QID PRN Pain 07/15/24 07/15/24 Unknown History (Tylenol) acetaminophen 500 mg tablet 500 mg PO Q6H PRN Pain 07/15/24 07/15/24 Unknown History ascorbic acid (vitamin C) 500 mg 250 mg PO DAILY 07/15/24 07/15/24 07/14/24 History tablet (Vitamin C) multivitamin 1 tab PO QAM 07/15/24 07/15/24 07/14/24 History omega 3-cgo-hii-fish oil 1,000 mg 1 cap PO DAILY 07/15/24 07/15/24 07/14/24 History (120 mg-180 mg) capsule (Fish Oil) tramadol 50 mg tablet 50 mg PO Q8H PRN Pain 07/15/24 07/15/24 Unknown History triamcinolone acetonide 0.1 % 1 applic topical BID PRN Itching 07/15/24 07/15/24 Unknown History topical cream vitamin E (dl, acetate) 180 mg 180 mg PO DAILY 07/15/24 07/15/24 07/14/24 History (400 unit) capsule Allergies Allergy/AdvReac Type Severity Reaction Status Date / Time cephalexin [From Keflex] Allergy lips Verified 04/25/21 15:45 swelling codeine Allergy N/V Verified 04/25/21 15:45 penicillin G Allergy lips swell Verified 04/25/21 15:45 Current Medications Generic Name Dose Route Start Last Admin Trade Name Papito PRN Reason Stop Dose Admin Acetaminophen 650 mg 07/14/24 18:03 07/15/24 15:39 Acetaminophen 325 Mg Tablet PO 650 mg Q6H PRN Administration Mild/Mod Pain Or Temp >/= 101 Amlodipine Besylate 5 mg 07/15/24 14:00 07/15/24 14:01 Amlodipine 5 Mg Tablet PO 5 mg DAILY YULIET Administration Atorvastatin Calcium 40 mg 07/14/24 21:00 07/14/24 20:47 Atorvastatin 40 Mg Tablet PO Not Given BEDTIME YULIET Isosorbide Mononitrate 60 mg 07/15/24 14:00 07/15/24 14:01 Isosorbide Mononitrate 20 Mg Tablet PO 60 mg DAILY YULIET Administration Pantoprazole Sodium 40 mg 07/14/24 18:15 07/15/24 08:34 Pantoprazole 40 Mg Sdv IVP 40 mg Q12H YULIET Administration PFSH Acute 2 PFSH: Medical History Hyperlipidemia Arthritis Family History Other CAD (coronary artery disease) Cancer Diabetes Hypertension Social History Smoking and tobacco/nicotine status: never used tobacco/nicotine Vitals/I&O/Wt Last Vital Signs Temp 97.4 F L 07/15/24 15:50 Pulse 76 07/15/24 15:50 Resp 18 07/15/24 15:50 BP 123/62 07/15/24 15:50 Pulse Ox 97 07/15/24 15:50 O2 Del Method Room Air 07/15/24 15:50 07/15/24 07/15/24 07/15/24 06:59 14:59 22:59 Intake Total 0 / 0 0 / 0 Balance 0 / 0 0 / 0 Weight last 48 hrs Weight 140 lb 8 oz Weight 147 lb Physical Exam 2 Narrative: Chest: Unlabored breathing room air. No lymphadenopathy. Heart: Regular rate and rhythm. Abdomen: Soft, nontender, nondistended. No masses or lymphadenopathy. Data 07/15/24 03:31 07/15/24 03:31 A&P Assessment and plan (1) GI bleed: Qualifiers: GI bleed type/associated pathology: unspecified gastrointestinal hemorrhage type Qualified Code(s): K92.2 - Gastrointestinal hemorrhage, unspecified Plan 88-year-old male extensive cardiac history who was admitted with chest pain. Cardiology is following. Medicine and cardiology are interested in an EGD to workup for a positive Hemoccult. They think the cardiac risk is acceptable since patient will likely need a heart cath and anticoagulation/antiplatelet therapy afterwards. I have had an extensive discussion with the patient and his family regarding the risks and benefits of an EGD. Patient has agreed to undergo an EGD tomorrow. Patient is not comfortable undergoing a colonoscopy so we will defer that. N.p.o. after midnight, maintenance IV fluids. I have relayed this information to the hospitalist. Coding Level of Care Code 36932 Diagnoses Gastrointestinal hemorrhage, unspecified gastrointestinal hemorrhage type K92.2 GI bleed type/associated pathology: unspecified gastrointestinal hemorrhage type Time Spent (min) 30
[2024-07-16] VITALS (13 sets, daily range): BP systolic 98–126; BP diastolic 50–67; PULSE 52–110; RESP 15–18; TEMP 36.7–37.1; O2SAT 93–100
[2024-07-16] MEDS: oxyCODONE-APAP 5-325 mg Tablet 1 TAB PO (03:20)
[2024-07-16 04:25] LABS: Basophils % 0.4 %; Eosinophils # 0.3 10^3/uL (0.0-0.8); Eosinophils % 3.7 %; Hematocrit 27.4 % (37-53); Lymphocytes # 1.5 10^3/uL (0.8-4.8); Lymphocytes % 17.4 %; Mean Corpuscular HGB Conc 31.8 g/dL (30-55); Mean Corpuscular Hemoglobin 28.9 pg (27-33); Mean Platelet Volume 9.7 fL (7.4-10.4); Monocytes % 11.7 %; Neutrophils # 5.55 10^3/uL (1.8-7.7); Neutrophils % 66.1 %; Nucleated Red Blood Cells % 0 %; Platelet Count 289 10^3/cmm (157-399); Red Blood Count 3.01 10^6/uL (3.85-5.65); Red Cell Distribution Width 14.2 % (12.1-15.1); White Blood Count 8.39 10^3/uL (3.29-11.43)
[2024-07-16 04:44] LABS: Alanine Aminotransferase 11 U/L (0-41); Albumin Level 3.4 g/dL (3.5-5.2); Alkaline Phosphatase 60 U/L (40-130); Aspartate Amino Transferase 18 U/L (0-40); Blood Urea Nitrogen 19 mg/dL (8-23); Calcium 8.3 mg/dL (8.5-10.5); Carbon Dioxide 26 mmol/L (22-29); Chloride 93 mmol/L (98-107); Creatinine Clr Calc Pharmacy 42.6598; Globulin 3.1 g/dL (1.3-4.6); Glucose 110 mg/dL (65-115); Osmolality Calculated 275 mOsm/kg (285-295); Sodium 131 mmol/L (136-145); Total Bilirubin 0.6 mg/dL (0.15-1.2); Total Protein 6.5 g/dL (6.6-8.7)
[2024-07-16] MEDS: amlodipine 5 mg Tablet PO (08:21)
[2024-07-16] MEDS: acetaminophen 325 mg Tablet 650 MG PO (08:21)
[2024-07-16] MEDS: isosorbide mononitrate 20 mg Tablet 60 MG PO (08:21)
[2024-07-16] MEDS: pantoprazole 40 mg SDV IVP ×2 (08:21→20:27)
[2024-07-16 09:18] LABS: Glucose Point of Care 139 mg/dL (70-110)
--- NOTE | 2024-07-16 09:21 | ECG_ITS ---
[facility] Test Date: 2024-07-16 Pat Name: Kwabena Sherwood Department: Room: 270 Gender: Male Field Captain: : 1935 Requested By: Vick Brito Order Number: [id number] David MD: Jeremy Dalal M.D. Measurements Intervals [place] Rate: 68 P: 74 MO: 175 QRS: 64 QRSD: 89 T: 72 QT: 382 QTc: 408 Interpretive Statements SINUS RHYTHM Compared to ECG 07/15/2024 00:37:05 Sinus bradycardia no longer present Electronically Signed On 07-16-2024 18:16:41 CDT by Jeremy Dalal M.D. [id number]
[2024-07-16] MEDS: lactated ringers 1,000 ML 75 ML IV (09:34)
[2024-07-16 09:56] LABS: Basophils % 0.2 %; Eosinophils # 0.1 10^3/uL (0.0-0.8); Eosinophils % 1.5 %; Hematocrit 27.9 % (37-53); Lymphocytes # 1.3 10^3/uL (0.8-4.8); Lymphocytes % 13.9 %; Mean Corpuscular HGB Conc 32.3 g/dL (30-55); Mean Corpuscular Hemoglobin 29.3 pg (27-33); Mean Corpuscular Volume 90.9 fl (82-101); Mean Platelet Volume 9.2 fL (7.4-10.4); Monocytes # 1.1 10^3/uL (0.2-0.9); Monocytes % 11.6 %; Neutrophils % 72.2 %; Nucleated Red Blood Cells % 0 %; Platelet Count 293 10^3/cmm (157-399); Red Blood Count 3.07 10^6/uL (3.85-5.65); Red Cell Distribution Width 14.1 % (12.1-15.1); White Blood Count 9.29 10^3/uL (3.29-11.43)
--- NOTE | 2024-07-16 10:30 | P.PN_ITS ---
Subjective 2 Subjective: Patient had an episode of AMS. Back to baseline. Family at bedside Vitals/I&O/Wt Last Vital Signs Temp 98.8 F 07/16/24 07:42 Pulse 78 07/16/24 07:42 Resp 18 07/16/24 07:42 BP 125/64 07/16/24 07:42 Pulse Ox 96 07/16/24 07:42 O2 Del Method Room Air 07/16/24 07:42 07/15/24 07/16/24 07/16/24 22:59 06:59 14:59 Intake Total 360 / 360 Balance 360 / 360 Weight last 48 hrs Weight 150 lb Weight 140 lb 8 oz Weight 147 lb Physical Exam 2 Narrative: Heart: RRR Lungs: unlabored breathing Abdomen: soft, NT, ND Data 07/16/24 09:44 07/16/24 04:00 A&P Assessment and plan (1) GI bleed: Qualifiers: GI bleed type/associated pathology: unspecified gastrointestinal hemorrhage type Qualified Code(s): K92.2 - Gastrointestinal hemorrhage, unspecified Plan 88yo M whom we were consulted for GIB workup. EGD this afternoon. Medicine and cardiology agree with this plan. Attestations 2 Medical Necessity Statement*: GIB workup ongoing Coding Level of Care Code 03311 Diagnoses Gastrointestinal hemorrhage, unspecified gastrointestinal hemorrhage type K92.2 GI bleed type/associated pathology: unspecified gastrointestinal hemorrhage type Time Spent (min) 30
--- NOTE | 2024-07-16 12:17 | P.PN_ITS ---
Subjective 2 Subjective: He is awaiting EGD. Earlier this morning after getting up to the restroom while walking back to his bed he became lightheaded, clammy, presyncopal. Vitals/I&O/Wt Last Vital Signs Temp 98.5 F 07/16/24 11:50 Pulse 67 07/16/24 11:50 Resp 18 07/16/24 11:50 BP 107/54 07/16/24 11:50 Pulse Ox 96 07/16/24 11:50 O2 Del Method Room Air 07/16/24 11:50 07/15/24 07/16/24 07/16/24 22:59 06:59 14:59 Intake Total 360 / 360 Balance 360 / 360 Weight last 48 hrs Weight 68.039 kg Weight 63.73 kg Weight 66.678 kg Physical Exam 2 Narrative: Sitting up in bed. Moderately hard of hearing. Accompanied by family. Const: COMMON NORMALS: patient oriented x3 and alert GENERAL APPEARANCE: c ooperative ORIENTATION/CONSCIOUSNESS: Yes awake HENMT: COMMON NORMALS: oropharynx normal Neck/C-Spine: COMMON NORMALS: no JVD Resp: COMMON NORMALS: normal respiratory effort and clear to auscultation bilaterally AUSCULTATION: clear to auscultation bilaterally Cardio: COMMON NORMALS: no JVD, regular rhythm, S1 normal heart sound present, S2 normal heart sound present and No murmurs present (Cardio) RHYTHM: regular rhythm HEART SOUNDS: S1 normal heart sound present and S2 normal heart sound present GI: COMMON NORMALS: Normal to inspection, nondistended, normoactive bowel sounds present, Soft to palpation and non-tender PALPATION: Yes Soft to palpation Extremity: COMMON NORMALS: no joint enlargement and no pedal edema Neuro: COMMON NORMALS: patient oriented x3 and moves all extremities S ENSORIUM/ORIENTATION: Yes alert Skin: COMMON NORMALS: no rashes or lesions noted GENERAL SKIN EXAM: no rashes or lesions noted Data 07/16/24 09:44 07/16/24 04:00 A&P Assessment and plan (1) Angina pectoris: Presyncopal episode today after using the restroom and walking back to his bed. Reviewed vitals, CBC, CBC repeated, CMP, EKG on my interpretation with sinus rhythm, pending official read. Discussed with cardiac sonographer. He had received some pain medication overnight due to pain in his right ankle and left knee which she has been dealing with. Additionally has been started on Imdur, amlodipine. Decrease dose of Imdur to 30 mg daily. Decrease amlodipine to 2.5 mg per discussion with cardiology. Monitor for risk of hypotension, orthostasis with Imdur. Check orthostatics. N.p.o. for EGD, added oral rehydration with Ringer's lactate. This morning CBC with hemoglobin 8.7, 1 unit RBC requested to be prepared, recheck CBC hemoglobin 9. Recheck again in the morning. Per discussion with cardiology reassess his condition with medical therapy. If no recurrence of chest pain, angiogram may be deferred. Discussed with nursing, medical case worker. Echocardiogram: abnormal echo with grade 3 diastolic dysfunction, severe elevation of filling pressures. Relative hypokinesis of anterior apical segment. Moderate MVR. Trace to mild AVR. Moderately severe TVR. Mild pulmonary hypertension, RVSP 42 mmHg. Continue statin. Metoprolol was discontinued this morning due to bradycardia. Nitroglycerin as needed for chest pain. He was started on long-acting nitrate with Imdur. Monitor for risk of hypotension with acute anemia, GI bleeding. SCD for VTE prophylaxis. Discussed with nursing, medical case worker. (2) Acute anemia: Reviewed hemoglobin, platelets this morning, hemoglobin down to 8.7. With presyncopal episodes, requested repeat CBC. 1 unit of RBC requested to be prepared. Repeat came back at 9. Hold off transfusion for now as per discussion with patient and his family. Reassess again in the morning. EGD today. Declined colonoscopy. Continue IV PPI twice daily. As above discussed with cardiology, discussed with surgery, pending assessment, consideration of endoscopic evaluation for any treatable bleeding lesion. With mild iron deficiency anemia, start oral iron supplementation. Reassess blood counts. He had originally been scheduled for EGD in 1 week on outpatient basis. Discussed consideration of further workup. In case more urgent cardiac studies will be needed with potential need for coronary angiography/intervention, a sooner endoscopy may be necessary prior to discharge. Otherwise if heart disease can be stabilized/not requiring urgent intervention, may benefit from continued Protonix therapy with follow-up EGD. (3) Positive occult stool blood test: As above. (4) Elevated d-dimer: Possibly secondary to suspected GI bleeding. CT angiogram, no PE. Lower extremity duplex study, negative for DVT. 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 Is supposed to be following up with orthopedics. Attestations 2 Medical Necessity Statement*: Continue admission for assessment of management of new onset angina suspected symptomatic coronary disease with minimal exertion, with acute anemia suspected GI blood loss. Presyncopal episode. and High MDM includes amount and/or complexity of data reviewed/ordered [ resulted lab(s)/test(s), ordered lab(s)/test(s), independent test interpretation and other healthcare professional discussion] and described risk of complication, morbidity or mortality of management as documented Diagnoses Angina pectoris I20.9 Acute anemia D64.9 Positive occult stool blood test R19.5 Elevated d-dimer R79.89
--- NOTE | 2024-07-16 13:29 | ANES.PREANE2 ---
Pre-Anesthetic Assessment Height/Weight: Height 1.73 m Weight 68.039 kg Temp Pulse Resp BP Pulse Ox O2 Del Method 98.5 F 80 16 107/50 98 Room Air 07/16/24 13:15 07/16/24 13:22 07/16/24 13:22 07/16/24 13:22 07/16/24 13:22 07/16/24 13:22 Operation Date: 07/16/24 13:00 Proposed Procedures p EGD(Not Applicable) - Carrillo Ocampo MD Social No alcohol and No tobacco Airway Submandibular: within normal limits Cervical ROM: Other (limited) Mallampati: Class II Pulmonary None reported CV/HEM Coronary Artery Disease (positive stress test and elevated troponin ) GI Peptic Ulcer Disease nsaid use Anesthetic Plan ASA status: 4 Anesthesia: MAC Medications/Allergies Home Medications Medication Instructions Recorded Confirmed Last Taken Type red yeast rice 600 mg capsule 600 mg PO DAILY 04/25/21 07/15/24 07/14/24 History acetaminophen 325 mg tablet 325 mg PO QID PRN Pain 07/15/24 07/15/24 Unknown History (Tylenol) acetaminophen 500 mg tablet 500 mg PO Q6H PRN Pain 07/15/24 07/15/24 Unknown History ascorbic acid (vitamin C) 500 mg 250 mg PO DAILY 07/15/24 07/15/24 07/14/24 History tablet (Vitamin C) multivitamin 1 tab PO QAM 07/15/24 07/15/24 07/14/24 History omega 5-jlw-ixt-fish oil 1,000 mg 1 cap PO DAILY 07/15/24 07/15/24 07/14/24 History (120 mg-180 mg) capsule (Fish Oil) tramadol 50 mg tablet 50 mg PO Q8H PRN Pain 07/15/24 07/15/24 Unknown History triamcinolone acetonide 0.1 % 1 applic topical BID PRN Itching 07/15/24 07/15/24 Unknown History topical cream vitamin E (dl, acetate) 180 mg 180 mg PO DAILY 07/15/24 07/15/24 07/14/24 History (400 unit) capsule Allergies Allergy/AdvReac Type Severity Reaction Status Date / Time cephalexin [From Keflex] Allergy lips Verified 04/25/21 15:45 swelling codeine Allergy N/V Verified 04/25/21 15:45 penicillin G Allergy lips swell Verified 04/25/21 15:45 Current Medications Generic Name Dose Route Start Last Admin Trade Name Freq PRN Reason Stop Dose Admin Acetaminophen 650 mg 07/14/24 18:03 07/16/24 08:21 Acetaminophen 325 Mg Tablet PO 650 mg Q6H PRN Administration Mild/Mod Pain Or Temp >/= 101 Amlodipine Besylate 5 mg 07/15/24 14:00 07/16/24 08:21 Amlodipine 5 Mg Tablet PO 5 mg DAILY YULIET Administration Atorvastatin Calcium 40 mg 07/14/24 21:00 07/15/24 20:16 Atorvastatin 40 Mg Tablet PO Not Given BEDTIME YULIET Lactated Ringer's 1,000 mls @ 75 mls/hr 07/16/24 09:30 07/16/24 09:34 Lactated Ringers IV 75 mls/hr .[id number] YULIET Administration Isosorbide Mononitrate 60 mg 07/15/24 14:00 07/16/24 08:21 Isosorbide Mononitrate 20 Mg Tablet PO 60 mg DAILY YULIET Administration Pantoprazole Sodium 40 mg 07/14/24 18:15 07/16/24 08:21 Pantoprazole 40 Mg Sdv IVP 40 mg Q12H YULIET Administration Additional Medication Information Current Medications Acetaminophen (Acetaminophen 325 Mg Tablet) 650 mg PO Q6H PRN PRN Reason: Mild/Mod Pain Or Temp >/= 101 Aminophylline (Aminophylline 25 Mg/Ml Sdv 10 Ml) 25 mg IVP Q2M PRN PRN Reason: see dose instructions Stop: 07/16/24 09:20 Amlodipine Besylate (Amlodipine 5 Mg Tablet) 5 mg PO DAILY [facility] Atorvastatin Calcium (Atorvastatin 40 Mg Tablet) 40 mg PO BEDTIME YULIET Last Admin: 07/14/24 20:47 Dose: Not Given Isosorbide Mononitrate (Isosorbide Mononitrate 20 Mg Tablet) 60 mg PO DAILY [facility] Nitroglycerin (Nitroglycerin 0.4 Mg Sublingual Tablet) 0.4 mg SUBLINGUAL Q5M PRN PRN Reason: CHEST PAIN Nitroglycerin (Nitroglycerin 0.4 Mg Sublingual Tablet) 0.4 mg SUBLINGUAL Q5M PRN PRN Reason: CHEST PAIN Stop: 07/16/24 09:20 Ondansetron HCl (Ondansetron 2 Mg/Ml Sdv 2 Ml) 4 mg IVP Q8H PRN PRN Reason: vomiting, or N/V if npo Ondansetron HCl (Ondansetron 2 Mg/Ml Sdv 2 Ml) 4 mg IVP Q2M PRN PRN Reason: NAUSEA Pantoprazole Sodium (Pantoprazole 40 Mg Sdv) 40 mg IVP Q12H YULIET Last Admin: 07/15/24 08:34 Dose: 40 mg PFSH Anesthesia Medical History Hyperlipidemia Arthritis Family History Other CAD (coronary artery disease) Cancer Diabetes Hypertension Social History Smoking and tobacco/nicotine status: never used tobacco/nicotine Data Anesthesia 07/16/24 09:44 07/16/24 04:00 Short CBC 07/14/24 07/15/24 07/16/24 Range/Units 19:11 03:31 04:00 WBC 7.55 7.77 8.39 (3.29-11.43) 10^3/uL Hgb 9.90 L 9.00 L 8.70 L (11.27-16.99) g/dL Hct 30.8 L 28.0 L 27.4 L (37-53) % MCV 90.6 90.9 91.0 (82-101) fl Plt Count 318 280 289 (157-399) 10^3/cmm Neut % (Auto) 88.2 76.2 66.1 % Neut # (Auto) 6.65 5.91 5.55 (1.8-7.7) 10^3/uL 07/16/24 Range/Units 09:44 WBC 9.29 (3.29-11.43) 10^3/uL Hgb 9.00 L (11.27-16.99) g/dL Hct 27.9 L (37-53) % MCV 90.9 (82-101) fl Plt Count 293 (157-399) 10^3/cmm Neut % (Auto) 72.2 % Neut # (Auto) 6.70 (1.8-7.7) 10^3/uL BMP 07/14/24 07/15/24 07/16/24 21:26 03:31 04:00 Sodium 133 L 134 L 131 L Potassium 4.8 4.5 4.0 Chloride 94 L 95 L 93 L Carbon Dioxide 25 26 26 BUN 24 H 22 19 Creatinine 1.1 1.1 1.2 Glucose 148 H 154 H 110 Calcium 8.9 8.5 8.3 L Cardiac Enzymes 07/14/24 07/14/24 07/15/24 Range/Units 19:11 21:26 01:00 Troponin T Baseline 20 H (0-15) ng/L Troponin T 120 Minute 20.50 H (0-15) ng/L Delta Troponin T 0.50 (0-10) ABS# Troponin T Hi Sens 6Hr 20.20 H (0-15) ng/L Troponin T Hi Sens 6Hr Delta 0.20 (0-12) ng/L Liver Function 07/15/24 07/16/24 Range/Units 03:31 04:00 Total Bilirubin 0.3 0.6 (0.15-1.2) mg/dL AST 20 18 (0-40) U/L ALT 13 11 (0-41) U/L Alkaline Phosphatase 68 60 (40-130) U/L Albumin 3.5 3.4 L (3.5-5.2) g/dL Blood Bank 07/16/24 09:44 Blood Type O Positive Rho(D) Type Rh positive Antibody Screen Negative Coags 07/14/24 19:11 D-Dimer 1.82 H Cardiac Studies: Echocardiogram 07/14/24 Sestamibi Stress Test (Cardiology) 07/15/24
[2024-07-16] MEDS: acetaminophen 500 mg Tablet PO ×2 (15:20→20:27)
--- NOTE | 2024-07-16 15:52 | PM.PN ---
Subjective Subjective: Patient is feeling okay with no recurrence of chest pain. He was having pain in the right knee and at the angle possibly from flareup of gout. Vitals are stable. The blood pressure has been staying in the low range. Medications: Medication Review Details: Current Medications Acetaminophen (Acetaminophen 325 Mg Tablet) 650 mg PO Q6H PRN PRN Reason: Mild/Mod Pain Or Temp >/= 101 Last Admin: 07/16/24 08:21 Dose: 650 mg Acetaminophen (Acetaminophen 500 Mg Tablet) 500 mg PO TID [facility] Stop: 07/21/24 14:59 Last Admin: 07/16/24 15:20 Dose: 500 mg Amlodipine Besylate (Amlodipine 5 Mg Tablet) 2.5 mg PO DAILY [facility] Atorvastatin Calcium (Atorvastatin 40 Mg Tablet) 40 mg PO BEDTIME [facility] Last Admin: 07/15/24 20:16 Dose: Not Given Capsaicin (Capsaicin 0.025% Cream 60 Gm) 1 applic TOPICAL QID PRN PRN Reason: PAIN Lactated Ringer's (Lactated Ringers) 1,000 mls @ 75 mls/hr IV .[id number] [facility] Last Admin: 07/16/24 09:34 Dose: 75 mls/hr Sodium Chloride (Sodium Chloride 0.9%) 1,000 mls @ 30 mls/hr IV .Q24H ONE Stop: 07/17/24 12:31 Last Admin: 07/16/24 13:50 Dose: Not Given Isosorbide Mononitrate (Isosorbide Mononitrate 20 Mg Tablet) 30 mg PO DAILY [facility] Lidocaine (Lidocaine 5% Patch) 1 patch TOPICAL [id number] [facility] Nitroglycerin (Nitroglycerin 0.4 Mg Sublingual Tablet) 0.4 mg SUBLINGUAL Q5M PRN PRN Reason: CHEST PAIN Ondansetron HCl (Ondansetron 2 Mg/Ml Sdv 2 Ml) 4 mg IVP Q8H PRN PRN Reason: vomiting, or N/V if npo Ondansetron HCl (Ondansetron 2 Mg/Ml Sdv 2 Ml) 4 mg IVP Q2M PRN PRN Reason: NAUSEA Pantoprazole Sodium (Pantoprazole 40 Mg Sdv) 40 mg IVP Q12H [facility] Last Admin: 07/16/24 08:21 Dose: 40 mg Sodium Chloride (Sodium Chloride 0.9% 100 Ml Bag) 50 ml IV PRN PRN PRN Reason: Blood transfusion prime and flush Stop: 07/17/24 09:23 Vitals/I&O/Wt Last Vital Signs Temp 98.2 F 07/16/24 15:10 Pulse 69 07/16/24 15:10 Resp 18 07/16/24 15:10 BP 122/52 07/16/24 15:10 Pulse Ox 93 07/16/24 15:10 O2 Del Method Room Air 07/16/24 15:10 07/16/24 07/16/24 07/16/24 06:59 14:59 22:59 Intake Total 360 / 360 Balance 360 / 360 Weight last 48 hrs Weight 150 lb Weight 140 lb 8 oz Weight 147 lb Physical Exam Narrative: GENERAL: The patient is alert and oriented times three. Not in any acute distress. HEENT: No significant pallor, icterus or lymphadenopathy.Oral cavity: There are no mucous membrane lesions. NECK: Trachea appears to be central. No masses noted. No JVD or thyromegaly appreciated. RESPIRATORY: Chest is symmetrical. No intercostals muscle retraction or any accessory muscle activation. There is no chest wall tenderness. Breath sounds are heard bilaterally. No rales or rhonchi heard. No evidence of any consolidation. BREASTS: Deferred. HEART: The heart sounds are normal. No S3 or S4. Short systolic murmur the left sternal border. No diastolic murmurs.]. No pericardial rub ABDOMEN: No vessel pulsations or distention. No tenderness. No organomegaly appreciated. Bowel sounds are normally heard. : Deferred. RECTAL: Deferred. LYMPHATIC: No lymphadenopathy noted in the neck. EXTREMITIES: No edema or cyanosis. No clubbing. MUSCULOSKELETAL: No acute joint deformities or swelling SKIN: There are no significant rashes or ecchymosis NEUROPSYCHIATRIC: The patient is alert and oriented x3. Appears to be in a good mood. No tremors or rigidity noted. Data 07/16/24 09:44 07/16/24 04:00 Other Labs: Laboratory Last Values WBC 9.29 10^3/uL (3.29-11.43) 07/16/24 09:44 RBC 3.07 10^6/uL (3.85-5.65) L 07/16/24 09:44 Hgb 9.00 g/dL (11.27-16.99) L 07/16/24 09:44 Hct 27.9 % (37-53) L 07/16/24 09:44 MCV 90.9 fl (82-101) 07/16/24 09:44 MCH 29.3 pg (27-33) 07/16/24 09:44 MCHC 32.3 g/dL (30-55) 07/16/24 09:44 RDW 14.1 % (12.1-15.1) 07/16/24 09:44 Plt Count 293 10^3/cmm (157-399) 07/16/24 09:44 MPV 9.2 fL (7.4-10.4) 07/16/24 09:44 Neut % (Auto) 72.2 % 07/16/24 09:44 Lymph % (Auto) 13.9 % 07/16/24 09:44 [place] % (Auto) 11.6 % 07/16/24 09:44 Eos % (Auto) 1.5 % 07/16/24 09:44 Baso % (Auto) 0.2 % 07/16/24 09:44 Neut # (Auto) 6.70 10^3/uL (1.8-7.7) 07/16/24 09:44 Lymph # (Auto) 1.3 10^3/uL (0.8-4.8) 07/16/24 09:44 [place] # (Auto) 1.1 10^3/uL (0.2-0.9) H 07/16/24 09:44 Eos # (Auto) 0.1 10^3/uL (0.0-0.8) 07/16/24 09:44 Baso # (Auto) 0.0 10^3/uL (0.0-0.1) 07/16/24 09:44 Nucleated RBC % (auto) 0 % 07/16/24 09:44 Nucleated RBCs # 0.0 /100WBC 07/16/24 09:44 D-Dimer 1.82 ug/mLFEU (0-0.59) H 07/14/24 19:11 Sodium 131 mmol/L (136-145) L 07/16/24 04:00 Potassium 4.0 mmol/L (3.5-5.1) 07/16/24 04:00 Chloride 93 mmol/L (98-107) L 07/16/24 04:00 Carbon Dioxide 26 mmol/L (22-29) 07/16/24 04:00 Anion Gap 16.0 (5-19) 07/16/24 04:00 BUN 19 mg/dL (8-23) 07/16/24 04:00 Creatinine 1.2 mg/dL (0.7-1.2) 07/16/24 04:00 GFR Calculation Not Reportable 07/16/24 04:00 Glucose 110 mg/dL (65-115) 07/16/24 04:00 POC Glucose 139 mg/dL (70-110) H 07/16/24 09:15 Calculated Osmolality 275 mOsm/kg (285-295) L 07/16/24 04:00 Calcium 8.3 mg/dL (8.5-10.5) L 07/16/24 04:00 Iron 39 ug/dL (59-158) L 07/14/24 19:11 TIBC 197 mcg/dl 07/14/24 19:11 % Saturation 19.7 % (20-50) L 07/14/24 19:11 Unsat Iron Binding 158 ug/dL (112-347) 07/14/24 19:11 Ferritin 483 ng/mL (30-400) H 07/14/24 19:11 Total Bilirubin 0.6 mg/dL (0.15-1.2) 07/16/24 04:00 AST 18 U/L (0-40) 07/16/24 04:00 ALT 11 U/L (0-41) 07/16/24 04:00 Alkaline Phosphatase 60 U/L (40-130) 07/16/24 04:00 Troponin T Baseline 20 ng/L (0-15) H 07/14/24 19:11 Troponin T 120 Minute 20.50 ng/L (0-15) H 07/14/24 21:26 Delta Troponin T 0.50 ABS# (0-10) 07/14/24 21:26 Troponin T Hi Sens 6Hr 20.20 ng/L (0-15) H 07/15/24 01:00 Troponin T Hi Sens 6Hr Delta 0.20 ng/L (0-12) 07/15/24 01:00 Total Protein 6.5 g/dL (6.6-8.7) L 07/16/24 04:00 Albumin 3.4 g/dL (3.5-5.2) L 07/16/24 04:00 Globulin 3.1 g/dL (1.3-4.6) 07/16/24 04:00 Blood Type O Positive 07/16/24 09:44 Rho(D) Type Rh positive 07/16/24 09:44 Antibody Screen Negative 07/16/24 09:44 Crossmatch See Detail 07/16/24 09:44 A&P Assessment and plan (1) New-onset angina: The patient had echocardiogram which revealed normal LV size and ejection fraction. Relative hypokinesia of the apical septum. Had a Myocardial perfusion imaging today. Was found to have a small area of ischemia. Apparently the patient has not had a recurrence of chest pain since the hospital admission. He seems to responding to the medication May start him on Plavix 300 mg p.o. today followed by 70 mg p.o. daily (2) Benign essential hypertension with target blood pressure below 140/90: Because of the low blood pressure, I may cut back on the dose of the isosorbide mononitrate to 30 mg p.o. daily. The amlodipine may be cut back to 2.5 mg p.o. daily. (3) Dyslipidemia: Seems to be tolerating her Lipitor so far well. This may be continued. (4) Blood loss anemia: Hemoglobin seems to be stable. Patient had the EGD today. No evidence of any active bleed. (5) GI bleed: It may be appropriate to give him a trial of Plavix to see whether any continued drop in the hemoglobin. If the hemoglobin stays okay, may consider cardiac catheterization as an outpatient Qualifiers: GI bleed type/associated pathology: unspecified gastrointestinal hemorrhage type Qualified Code(s): K92.2 - Gastrointestinal hemorrhage, unspecified Plan If the patient continues to remain stable with no recurrence of chest pain, may continue on the current medication. Also consider starting him on Plavix, if he is not going for lower endoscopy. Consider cardiac catheterization as an outpatient Discussed with the Attestations Medical Necessity Statement*: Disposition as per the primary Coding Level of Care Code 18604 Diagnoses New-onset angina I20.9 Benign essential hypertension with target blood pressure below 140/90 I10 Dyslipidemia E78.5 Blood loss anemia D50.0 Gastrointestinal hemorrhage, unspecified gastrointestinal hemorrhage type K92.2 GI bleed type/associated pathology: unspecified gastrointestinal hemorrhage type
[2024-07-16] MEDS: HYDROcodone-acetaminophen 5-325 mg Tablet 1 TAB PO (17:29)
[2024-07-16] MEDS: lidocaine 5% Patch 1 PATCH TOPICAL (20:28)
[2024-07-16] MEDS: capsaicin 0.025% cream 60 gm 1 APPLIC TOPICAL (20:34)
[2024-07-17] VITALS (10 sets, daily range): BP systolic 117–155; BP diastolic 53–71; PULSE 63–90; RESP 14–19; TEMP 36.7–36.9; O2SAT 96–98
[2024-07-17] MEDS: acetaminophen 325 mg Tablet 650 MG PO (02:20)
[2024-07-17] MEDS: capsaicin 0.025% cream 60 gm 1 APPLIC TOPICAL (02:30)
[2024-07-17] MEDS: lactated ringers 1,000 ML 75 ML IV (02:31)
[2024-07-17 03:55] LABS: Basophils % 0.3 %; Eosinophils # 0.3 10^3/uL (0.0-0.8); Eosinophils % 3.9 %; Hematocrit 25.7 % (37-53); Lymphocytes # 1.2 10^3/uL (0.8-4.8); Lymphocytes % 15.6 %; Mean Corpuscular HGB Conc 32.3 g/dL (30-55); Mean Corpuscular Hemoglobin 29.3 pg (27-33); Mean Corpuscular Volume 90.8 fl (82-101); Monocytes # 1.1 10^3/uL (0.2-0.9); Monocytes % 14.8 %; Neutrophils # 4.83 10^3/uL (1.8-7.7); Neutrophils % 64.7 %; Nucleated Red Blood Cells % 0 %; Platelet Count 236 10^3/cmm (157-399); Red Blood Count 2.83 10^6/uL (3.85-5.65); Red Cell Distribution Width 14.3 % (12.1-15.1); White Blood Count 7.45 10^3/uL (3.29-11.43)
[2024-07-17 04:28] LABS: Alanine Aminotransferase 11 U/L (0-41); Albumin Level 3.3 g/dL (3.5-5.2); Alkaline Phosphatase 69 U/L (40-130); Aspartate Amino Transferase 19 U/L (0-40); Blood Urea Nitrogen 17 mg/dL (8-23); Calcium 8.1 mg/dL (8.5-10.5); Carbon Dioxide 24 mmol/L (22-29); Chloride 96 mmol/L (98-107); Creatinine Clr Calc Pharmacy 41.6845; Globulin 2.9 g/dL (1.3-4.6); Glucose 127 mg/dL (65-115); Osmolality Calculated 281 mOsm/kg (285-295); Sodium 134 mmol/L (136-145); Total Bilirubin 0.6 mg/dL (0.15-1.2); Total Protein 6.2 g/dL (6.6-8.7)
--- NOTE | 2024-07-17 07:55 | P.PN_ITS ---
Subjective 2 Subjective: Patient denies chest pain. Family worried as patient was having chest pain even with minimal exertion at home. In the hospital he is not exerting. Vitals/I&O/Wt Last Vital Signs Temp 98.1 F 07/17/24 07:21 Pulse 85 07/17/24 07:21 Resp 14 07/17/24 04:00 BP 155/71 07/17/24 07:21 Pulse Ox 96 07/17/24 07:21 O2 Del Method Room Air 07/17/24 07:21 07/16/24 07/17/24 07/17/24 22:59 06:59 14:59 Intake Total 360 / 360 1000 / 1360 Balance 360 / 360 1000 / 1360 Weight last 48 hrs Weight 152 lb 12.8 oz Weight 141 lb 6.4 oz Weight 150 lb Physical Exam 2 Narrative: GENERAL: Patient is alert, awake and oriented x3. [] NECK: No jugular vein distension. [] HEENT: No cyanosis. No icterus. No pallor. [] HEART: Regular S1 and S2. No murmur, rub or gallop. [] LUNGS: Clear to auscultate bilaterally. [] CENTRAL NERVOUS SYSTEM: Grossly nonfocal. [] EXTREMITIES: Lower extremities with 1+ edema bilaterally Data 07/17/24 03:04 07/17/24 03:04 A&P Assessment and plan (1) New-onset angina: (2) Benign essential hypertension with target blood pressure below 140/90: (3) Dyslipidemia: (4) Blood loss anemia: (5) GI bleed: Qualifiers: GI bleed type/associated pathology: unspecified gastrointestinal hemorrhage type Qualified Code(s): K92.2 - Gastrointestinal hemorrhage, unspecified Plan Patient and family described chest pain as significant in the last 1 week and with any minimal physical activity at home patient was experiencing chest discomfort. Stress test is abnormal. Upper GI scope did not reveal source of bleeding. I had a detailed discussion with patient and family regarding all possible options. They are worried about symptoms which are indeed appears unstable angina given minimal exertion brings it back. Currently chest pain free. We will start aspirin and plavix today. Can obtain colonoscopy vs assess cbc response to antiplatelets and if no drop in Hgb by friday, can proceed with LHC/ Possible PCI. Risks and benefits of both approaches discussed. Thank you for involving us with care of this patient. We will continue to follow. Please call with questions. Attestations 2 Medical Necessity Statement*: Care expected to cross 2 midnights. Coding Level of Care Code Acute Code for Chg Fwd Diagnoses New-onset angina I20.9 Benign essential hypertension with target blood pressure below 140/90 I10 Dyslipidemia E78.5 Blood loss anemia D50.0 Gastrointestinal hemorrhage, unspecified gastrointestinal hemorrhage type K92.2 GI bleed type/associated pathology: unspecified gastrointestinal hemorrhage type
[2024-07-17] MEDS: isosorbide mononitrate 20 mg Tablet 30 MG PO (09:16)
[2024-07-17] MEDS: pantoprazole 40 mg SDV IVP ×2 (09:17→22:01)
[2024-07-17] MEDS: sennosides-docusate Tablet 2 TAB PO ×2 (09:17→17:07)
[2024-07-17] MEDS: acetaminophen 500 mg Tablet PO ×3 (09:17→22:01)
[2024-07-17] MEDS: ferrous sulfate EC 325 mg Tablet PO (09:31)
--- NOTE | 2024-07-17 10:18 | CTR_ITS ---
PROCEDURE INFORMATION: Exam: CT Abdomen And Pelvis Without Contrast Exam date and time: 07/17/2024 10:53 AM Age: 88 years old Clinical indication: Other: Possible retroperitoneal bleed TECHNIQUE: Imaging protocol: Computed tomography of the abdomen and pelvis without contrast. Radiation optimization: All CT scans at this facility use at least one of these dose optimization techniques: automated exposure control; mA and/or kV adjustment per patient size (includes targeted exams where dose is matched to clinical indication); or iterative reconstruction. COMPARISON: CT angio chest PE protcl [id number] 07/14/2024 11:58 PM RADIATION DOSE METRICS: Total DLP (mGy-cm): 407.82 FINDINGS: Lungs: Atelectatic changes in bilateral lower lobes. Coronary arteries: Moderate coronary calcifications. Liver: Normal. No mass. Gallbladder and biliary ducts: Normal. No calcified stones. No ductal dilation. Pancreas: Normal. No ductal dilation. Spleen: Calcified granulomas in the spleen. Adrenal glands: Normal. No mass. Kidneys and ureters: Normal. No hydronephrosis. Stomach and bowel: Diverticulosis of the sigmoid colon. Appendix: No evidence of appendicitis. Intraperitoneal space: Unremarkable. No free air. No significant fluid collection. Vasculature: Vascular calcifications the aorta. Pelvic phleboliths. Lymph nodes: Unremarkable. No enlarged lymph nodes. Urinary bladder: Unremarkable as visualized. Reproductive: Prostate gland calcifications. Bones/joints: Mild degenerative disease of the symphysis pubis. Moderate degenerative disease of bilateral sacroiliac joints. Mild degenerative disease of bilateral hip joints. Curvature of the thoracolumbar spine convex to the right. Bilateral L4-L5 facet joint arthropathy with mild anterolisthesis of L4 over L5. Severe bilateral L4-L5 neural foraminal narrowing and moderate to severe thecal sac compression. Mild retrolisthesis of L3 over L4 and L2 over L3. Posterior disc bulge at L3-L4 with moderate bony canal stenosis. Bilateral gluteal traction changes. Soft tissues: Unremarkable. CT/CT abdomen pelvis wo con [id number] IMPRESSION: No intra-abdominal hemorrhage.
[2024-07-17] MEDS: HYDROcodone-acetaminophen 5-325 mg Tablet 1 TAB PO (11:09)
[2024-07-17 12:03] LABS: Reticulocyte % 2.7 % (0.5-2.0)
[2024-07-17 12:14] LABS: Lactate Dehydrogenase 151 U/L (135-225)
--- NOTE | 2024-07-17 12:16 | ANE.PACU2 ---
Inpatient post-anesthesia follow up: Airway intact: Yes Vital signs: Temperature 98.5 F Pulse Rate [Orthos tatic 110 Standing] Pulse Rate [Orthos tatic 92 Sitting] Pulse Rate [Orthos tatic Lying] 79 Pulse Rate 87 Respiratory Rate 16 Blood Pressure [Or thostatic 114/67 Standing] Blood Pressure [Or thostatic 126/62 Sitting] Blood Pressure [Or thostatic 105/51 Lying] Blood Pressure 117/63 Pulse Oximetry 96 Oxygen Delivery Me thod Room Air Oxygen Flow Rate Fraction of Inspir ed Oxygen Hydration adequate: Yes Nausea and vomiting: No Mental status: Baseline
--- NOTE | 2024-07-17 14:34 | P.PN_ITS ---
Subjective 2 Subjective: Bothered by pain in his right ankle, left knee. Had a bowel movement yesterday which was nonbloody, nonmelanotic. So far no chest pain but he also has not been ambulating. Vitals/I&O/Wt Last Vital Signs Temp 98.5 F 07/17/24 12:00 Pulse 90 07/17/24 14:00 Resp 16 07/17/24 12:00 BP 117/63 07/17/24 12:00 Pulse Ox 96 07/17/24 12:00 O2 Del Method Room Air 07/17/24 12:00 07/16/24 07/17/24 07/17/24 22:59 06:59 14:59 Intake Total 360 / 360 1000 / 1360 360 / 360 Balance 360 / 360 1000 / 1360 360 / 360 Weight last 48 hrs Weight 69.309 kg Weight 64.138 kg Weight 68.039 kg Physical Exam 2 Narrative: Sitting up at edge of bed. Moderately hard of hearing. Accompanied by family. Const: COMMON NORMALS: patient oriented x3 and alert GENERAL APPEARANCE: c ooperative ORIENTATION/CONSCIOUSNESS: Yes awake HENMT: COMMON NORMALS: oropharynx normal Neck/C-Spine: COMMON NORMALS: no JVD Resp: COMMON NORMALS: normal respiratory effort and clear to auscultation bilaterally AUSCULTATION: clear to auscultation bilaterally Cardio: COMMON NORMALS: no JVD, regular rhythm, S1 normal heart sound present, S2 normal heart sound present and No murmurs present (Cardio) RHYTHM: regular rhythm HEART SOUNDS: S1 normal heart sound present and S2 normal heart sound present GI: COMMON NORMALS: Normal to inspection, nondistended, normoactive bowel sounds present, Soft to palpation and non-tender PALPATION: Yes Soft to palpation Extremity: COMMON NORMALS: no joint enlargement and no pedal edema Neuro: COMMON NORMALS: patient oriented x3 and moves all extremities S ENSORIUM/ORIENTATION: Yes alert Skin: COMMON NORMALS: no rashes or lesions noted GENERAL SKIN EXAM: no rashes or lesions noted Data 07/17/24 03:04 07/17/24 03:04 A&P Assessment and plan (1) Acute anemia: Reviewed vitals, hemoglobin, platelets. Discussed decrease hemoglobin down to 8.3. He had a bowel movement yesterday which was nonbloody, nonmelanotic. EGD without lesions. Discussed with cardiology, surgery, reviewed EGD note, surgery note, cardiology note, discussed with patient and family. No bleeding source has been found so far. We have discussed obtaining CT abdomen pelvis to assess for any retroperitoneal or other intra-abdominal bleeding. CT obtained and without intra-abdominal hemorrhage. Additionally obtained reticulocyte count, haptoglobin, LDH. Reviewed T. bili, normal. Reticulocyte 2.7%. Haptoglobin not low, LDH not elevated. Without suggestion of hemolysis. Reticulocyte elevated but inadequate for degree of anemia. Discussed bone marrow appears to be not producing adequate supply and response to anemia, likely contributing to the anemia. Otherwise not entirely clear source of where he lost the blood, no gastritis, PUD noted in the stomach. Discussed possibility of Dieulafoy's lesion, although on EGD did not have even any old blood. Discussed possibility of lesion lower down. Discussed consideration of transfer and assessment at higher level of care facility with gastroenterology, consideration of push enteroscopy versus provocative angiography to identify additional source of bleeding. At the same time with degree of anemia without so far significant evidence of GI bleeding apart from positive Hemoccult stool, although he does also reportedly strain while having a BM, possibility of false positive is there as well. We have not seen compelling evidence of significant GI bleeding without any hematochezia, melena, with him having an unremarkable stool yesterday. Discussed additionally option with the team and patient family of trial of antiplatelets with monitoring, reassessment for any bleeding with risk of bleeding, reassessment of blood counts, consideration of angiography over the next couple of days if there is no evidence of active bleeding. As he has had quite significant limitation to his functioning he had family would prefer not to defer assessment management of cardiac issue so as to prevent inevitable functional decline and other complications. On further consideration of options they decide to proceed with antiplatelet trial here with monitoring. Will request hemoglobin follow-up for tonight. He has 1 unit RBC on hold, transfuse in case of additional decrease. Recheck blood counts in the morning. Continue IV PPI twice daily. Resume regular diet. Stop IV fluid. With mild iron deficiency anemia, start oral iron supplementation. Reassess blood counts. Follow-up with hematology with regards to bone marrow dysfunction. (2) Angina pectoris: Additional workup of anemia as above. As per decision above trial of aspirin and Plavix. Reassess blood counts. Consideration of coronary angiography if tolerating. Presyncopal episode today after using the restroom and walking back to his bed. Reviewed vitals, CBC, CBC repeated, CMP, EKG on my interpretation with sinus rhythm, pending official read. Discussed with coffee taster. He had received some pain medication overnight due to pain in his right ankle and left knee which she has been dealing with. Additionally has been started on Imdur, amlodipine. Decrease dose of Imdur to 30 mg daily. Decrease amlodipine to 2.5 mg per discussion with cardiology. Monitor for risk of hypotension, orthostasis with Imdur. Check orthostatics. N.p.o. for EGD, added oral rehydration with Ringer's lactate. This morning CBC with hemoglobin 8.7, 1 unit RBC requested to be prepared, recheck CBC hemoglobin 9. Recheck again in the morning. Per discussion with cardiology reassess his condition with medical therapy. If no recurrence of chest pain, angiogram may be deferred. Discussed with nursing, child welfare caseworker. Echocardiogram: abnormal echo with grade 3 diastolic dysfunction, severe elevation of filling pressures. Relative hypokinesis of anterior apical segment. Moderate MVR. Trace to mild AVR. Moderately severe TVR. Mild pulmonary hypertension, RVSP 42 mmHg. Continue statin. Metoprolol was discontinued this morning due to bradycardia. Nitroglycerin as needed for chest pain. He was started on long-acting nitrate with Imdur. Monitor for risk of hypotension with acute anemia, GI bleeding. SCD for VTE prophylaxis. Discussed with nursing, child welfare caseworker. (3) Positive occult stool blood test: As above. (4) Elevated d-dimer: Possibly secondary to suspected GI bleeding. CT angiogram, no PE. Lower extremity duplex study, negative for DVT. 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 Switched. Lidocaine patch did not work. Discontinue. Symptoms so far resolved after ibuprofen and prednisone. Is supposed to be following up with orthopedics. Attestations 2 Medical Necessity Statement*: Continue admission for assessment of management of new onset angina suspected symptomatic coronary disease with minimal exertion, with acute anemia suspected GI blood loss. Presyncopal episode. Diagnoses Acute anemia D64.9 Angina pectoris I20.9 Positive occult stool blood test R19.5 Elevated d-dimer R79.89
[2024-07-17] MEDS: aspirin 325 mg Tablet PO (14:47)
[2024-07-17] MEDS: clopidogrel 300 mg Tablet 600 MG PO (14:47)
--- NOTE | 2024-07-17 14:47 | PC.NURSE ---
the reason plavix and asa were delayed in being administered was because family and team were deciding if colonoscopy was needed prior to cardiac angiogram
[2024-07-17] MEDS: oxyCODONE-APAP 5-325 mg Tablet 1 TAB PO (22:02)
[2024-07-18] VITALS (20 sets, daily range): BP systolic 121–159; BP diastolic 52–80; PULSE 70–92; RESP 16–18; TEMP 36.4–38.3; O2SAT 95–98
[2024-07-18 05:08] LABS: Basophils % 0.5 %; Eosinophils # 0.4 10^3/uL (0.0-0.8); Eosinophils % 5.6 %; Hematocrit 27.1 % (37-53); Lymphocytes # 1.1 10^3/uL (0.8-4.8); Lymphocytes % 14.3 %; Mean Corpuscular HGB Conc 31.4 g/dL (30-55); Mean Corpuscular Volume 92.5 fl (82-101); Mean Platelet Volume 9.6 fL (7.4-10.4); Monocytes % 12.6 %; Neutrophils # 5.11 10^3/uL (1.8-7.7); Neutrophils % 66.2 %; Nucleated Red Blood Cells % 0 %; Platelet Count 220 10^3/cmm (157-399); Red Blood Count 2.93 10^6/uL (3.85-5.65); Red Cell Distribution Width 14.7 % (12.1-15.1); White Blood Count 7.71 10^3/uL (3.29-11.43)
[2024-07-18 05:32] LABS: Alanine Aminotransferase 15 U/L (0-41); Albumin Level 3.2 g/dL (3.5-5.2); Alkaline Phosphatase 71 U/L (40-130); Anion Gap 20.2 (5-19); Aspartate Amino Transferase 22 U/L (0-40); Blood Urea Nitrogen 18 mg/dL (8-23); Calcium 8.3 mg/dL (8.5-10.5); Carbon Dioxide 23 mmol/L (22-29); Chloride 95 mmol/L (98-107); Creatinine Clr Calc Pharmacy 42.4555; Glucose 113 mg/dL (65-115); Osmolality Calculated 281 mOsm/kg (285-295); Potassium 4.2 mmol/L (3.5-5.1); Sodium 134 mmol/L (136-145); Total Bilirubin 0.6 mg/dL (0.15-1.2); Total Protein 6.2 g/dL (6.6-8.7)
[2024-07-18] MEDS: oxyCODONE-APAP 5-325 mg Tablet 1 TAB PO ×2 (08:37→23:45)
[2024-07-18] MEDS: sennosides-docusate Tablet 2 TAB PO ×2 (08:38→17:18)
[2024-07-18] MEDS: capsaicin 0.025% cream 60 gm 1 APPLIC TOPICAL ×2 (08:38→18:30)
[2024-07-18] MEDS: ferrous sulfate EC 325 mg Tablet PO (08:38)
[2024-07-18] MEDS: isosorbide mononitrate 20 mg Tablet 30 MG PO (08:39)
[2024-07-18] MEDS: acetaminophen 500 mg Tablet PO ×3 (08:39→20:36)
[2024-07-18] MEDS: pantoprazole 40 mg SDV IVP ×2 (09:33→21:24)
--- NOTE | 2024-07-18 10:20 | P.PN_ITS ---
Subjective 2 Subjective: Patient is chest pain free. Hemoglobin staying stable on aspirin and Plavix. Vitals/I&O/Wt Last Vital Signs Temp 97.9 F 07/18/24 07:14 Pulse 78 07/18/24 07:14 Resp 16 07/18/24 08:37 BP 135/65 07/18/24 07:14 Pulse Ox 97 07/18/24 07:14 O2 Del Method Room Air 07/18/24 07:14 07/17/24 07/18/24 07/18/24 22:59 06:59 14:59 Intake Total 1000 / 1600 240 / 240 Balance 1000 / 1600 240 / 240 Weight last 48 hrs Weight 148 lb 3.2 oz Weight 152 lb 12.8 oz Weight 141 lb 6.4 oz Physical Exam 2 Narrative: GENERAL: Patient is alert, awake and oriented x3. [] NECK: No jugular vein distension. [] HEENT: No cyanosis. No icterus. No pallor. [] HEART: Regular S1 and S2. No murmur, rub or gallop. [] LUNGS: Clear to auscultate bilaterally. [] CENTRAL NERVOUS SYSTEM: Grossly nonfocal. [] EXTREMITIES: Lower extremities with 1+ edema bilaterally Data 07/18/24 04:35 07/18/24 04:35 A&P Assessment and plan (1) New-onset angina: (2) Benign essential hypertension with target blood pressure below 140/90: (3) Dyslipidemia: (4) Blood loss anemia: (5) GI bleed: Qualifiers: GI bleed type/associated pathology: unspecified gastrointestinal hemorrhage type Qualified Code(s): K92.2 - Gastrointestinal hemorrhage, unspecified Plan Patient was started loaded with aspirin and Plavix yesterday. Hemoglobin is staying stable. We will continue with dual antiplatelet therapy and if there is no change in hemoglobin by tomorrow, will plan for coronary angiogram with possible PCI. With more history from family, symptoms were concerning as minimal exertion brings chest pain. Thank you for involving us with care of this patient. We will continue to follow. Please call with questions. Attestations 2 Medical Necessity Statement*: Care expected to cross 2 midnights. Coding Level of Care Code Acute Code for [facility] Diagnoses New-onset angina I20.9 Benign essential hypertension with target blood pressure below 140/90 I10 Dyslipidemia E78.5 Blood loss anemia D50.0 Gastrointestinal hemorrhage, unspecified gastrointestinal hemorrhage type K92.2 GI bleed type/associated pathology: unspecified gastrointestinal hemorrhage type
[2024-07-18] MEDS: clopidogrel 75 mg Tablet PO (11:03)
[2024-07-18] MEDS: aspirin 81 mg EC Tablet PO (11:03)
--- NOTE | 2024-07-18 18:12 | P.PN_ITS ---
Subjective 2 Subjective: He is doing pretty well today says. No chest pain or pressure at rest. During the day he had a bowel movement, no blood or melena. Hemoccult obtained. Patient has been working versus pain in his right ankle and left knee, except could not tolerated on his toes where it caused burning. Vitals/I&O/Wt Last Vital Signs Temp 97.7 F 07/18/24 16:00 Pulse 75 07/18/24 16:00 Resp 17 07/18/24 11:15 BP 147/64 07/18/24 16:00 Pulse Ox 97 07/18/24 16:00 O2 Del Method Room Air 07/18/24 16:00 07/18/24 07/18/24 07/18/24 06:59 14:59 22:59 Intake Total 240 / 240 Balance 240 / 240 Weight last 48 hrs Weight 67.222 kg Weight 69.309 kg Weight 64.138 kg Physical Exam 2 Narrative: Sitting up at edge of bed. Moderately hard of hearing. Accompanied by family. Const: COMMON NORMALS: patient oriented x3 and alert GENERAL APPEARANCE: c ooperative ORIENTATION/CONSCIOUSNESS: Yes awake HENMT: COMMON NORMALS: oropharynx normal Neck/C-Spine: COMMON NORMALS: no JVD Resp: COMMON NORMALS: normal respiratory effort and clear to auscultation bilaterally AUSCULTATION: clear to auscultation bilaterally Cardio: COMMON NORMALS: no JVD, regular rhythm, S1 normal heart sound present, S2 normal heart sound present and No murmurs present (Cardio) RHYTHM: regular rhythm HEART SOUNDS: S1 normal heart sound present and S2 normal heart sound present GI: COMMON NORMALS: Normal to inspection, nondistended, normoactive bowel sounds present, Soft to palpation and non-tender PALPATION: Yes Soft to palpation Extremity: COMMON NORMALS: no joint enlargement and no pedal edema Neuro: COMMON NORMALS: patient oriented x3 and moves all extremities S ENSORIUM/ORIENTATION: Yes alert Skin: COMMON NORMALS: no rashes or lesions noted GENERAL SKIN EXAM: no rashes or lesions noted Data 07/18/24 16:08 07/18/24 04:35 Micro: Microbiology 07/18/24 12:17 Occult Blood (FIT) - Final Stool Routine Collection A&P Assessment and plan (1) Acute anemia: Reviewed vitals, hemoglobin, platelet level, T. bili, hemoglobin around 8.5 today. Continue with antiplatelets. Had a bowel movement, no hematochezia or melena. Maintaining blood pressure. No tachycardia. Requested repeat Hemoccult, reviewed, negative. Requested repeat hemoglobin as per discussion with band aid machine operator. Tentative plans for coronary angiography tomorrow. Repeat hemoglobin is 8, will give him 1 unit of RBC transfusion. Monitor for risk of circulatory overload, other complications with transfusion. Suspect pulmonary dysfunction with gradual loss of RBC which are not being replaced. Will need follow-up with hematology. Will request peripheral smear as well. Reviewed vitals, CMP. Repeat blood counts, CMP. Follow-up peripheral smear. He had a bowel movement which was nonbloody, nonmelanotic. EGD without lesions. Discussed with cardiology, surgery, reviewed EGD note, surgery note, cardiology note, discussed with patient and family. No bleeding source has been found so far. We have discussed obtaining CT abdomen pelvis to assess for any retroperitoneal or other intra-abdominal bleeding. CT obtained and without intra-abdominal hemorrhage. Additionally obtained reticulocyte count, haptoglobin, LDH. Reviewed T. bili, normal. Reticulocyte 2.7%. Haptoglobin not low, LDH not elevated. Without suggestion of hemolysis. Reticulocyte elevated but inadequate for degree of anemia. Discussed bone marrow appears to be not producing adequate supply and response to anemia, likely contributing to the anemia. Otherwise not entirely clear source of where he lost the blood, no gastritis, PUD noted in the stomach. Discussed possibility of Dieulafoy's lesion, although on EGD did not have even any old blood. Discussed possibility of lesion lower down. Discussed consideration of transfer and assessment at higher level of care facility with gastroenterology, consideration of push enteroscopy versus provocative angiography to identify additional source of bleeding. At the same time with degree of anemia without so far significant evidence of GI bleeding apart from positive Hemoccult stool, although he does also reportedly strain while having a BM, possibility of false positive is there as well. We have not seen compelling evidence of significant GI bleeding without any hematochezia, melena, with him having an unremarkable stool yesterday and today. Discussed additionally option with the team and patient family of trial of antiplatelets with monitoring, reassessment for any bleeding with risk of bleeding, reassessment of blood counts, consideration of angiography over the next couple of days if there is no evidence of active bleeding. As he has had quite significant limitation to his functioning he had family would prefer not to defer assessment management of cardiac issue so as to prevent inevitable functional decline and other complications. Proceeding with trial of antiplatelets with monitoring. Continue IV PPI twice daily. Regular diet. With mild iron deficiency anemia, start oral iron supplementation. Reassess blood counts. Follow-up with hematology with regards to bone marrow dysfunction. (2) Angina pectoris: Additional workup of anemia as above. As per decision above trial of aspirin and Plavix. Reassess blood counts. Consideration of coronary angiography if tolerating. Presyncopal episode today after using the restroom and walking back to his bed. Reviewed vitals, CBC, CBC repeated, CMP, EKG on my interpretation with sinus rhythm, pending official read. Discussed with band aid machine operator. He had received some pain medication overnight due to pain in his right ankle and left knee which she has been dealing with. Additionally has been started on Imdur, amlodipine. Decrease dose of Imdur to 30 mg daily. Held amlodipine. Monitor for risk of hypotension, orthostasis with Imdur. Unremarkable orthostatics. Echocardiogram: abnormal echo with grade 3 diastolic dysfunction, severe elevation of filling pressures. Relative hypokinesis of anterior apical segment. Moderate MVR. Trace to mild AVR. Moderately severe TVR. Mild pulmonary hypertension, RVSP 42 mmHg. Continue statin. Metoprolol was discontinued this morning due to bradycardia. Nitroglycerin as needed for chest pain. He was started on long-acting nitrate with Imdur. Monitor for risk of hypotension with acute anemia, GI bleeding. SCD for VTE prophylaxis. Discussed with nursing, case supervisor. (3) Positive occult stool blood test: As above. (4) Elevated d-dimer: Possibly secondary to suspected GI bleeding. CT angiogram, no PE. Lower extremity duplex study, negative for DVT. 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 Responding well to capsaicin, apart from on his toes. Percocet worked better for him than hydrocodone. Switched. Lidocaine patch did not work. Discontinue. Symptoms so far resolved after ibuprofen and prednisone. Is supposed to be following up with orthopedics. Attestations 2 Medical Necessity Statement*: Continue admission for assessment of management of new onset angina suspected symptomatic coronary disease with minimal exertion, with acute anemia suspected GI blood loss. Presyncopal episode. and High MDM includes amount and/or complexity of data reviewed/ordered [ resulted lab(s)/test(s), ordered lab(s)/test(s) and other healthcare professional discussion] and described risk of complication, morbidity or mortality of management as documented Diagnoses Acute anemia D64.9 Angina pectoris I20.9 Positive occult stool blood test R19.5 Elevated d-dimer R79.89
[2024-07-18 19:25] LABS: LAB Peripheral Smear Sent for Review
[2024-07-18] MEDS: sodium chloride 0.9% 100 mL Bag 50 ML IV (20:38)
[2024-07-19] VITALS (37 sets, daily range): BP systolic 99–186; BP diastolic 46–145; PULSE 63–94; RESP 10–24; TEMP 36.9–37.5; O2SAT 92–98
[2024-07-19 02:59] LABS: Basophils % 0.5 %; Eosinophils # 0.6 10^3/uL (0.0-0.8); Eosinophils % 7.1 %; Hematocrit 29.1 % (37-53); Lymphocytes # 0.8 10^3/uL (0.8-4.8); Lymphocytes % 9.4 %; Mean Corpuscular HGB Conc 32.6 g/dL (30-55); Mean Corpuscular Hemoglobin 29.2 pg (27-33); Mean Corpuscular Volume 89.5 fl (82-101); Mean Platelet Volume 9.8 fL (7.4-10.4); Neutrophils # 6.09 10^3/uL (1.8-7.7); Neutrophils % 70.2 %; Nucleated Red Blood Cells % 0 %; Platelet Count 180 10^3/cmm (157-399); Red Blood Count 3.25 10^6/uL (3.85-5.65); Red Cell Distribution Width 14.6 % (12.1-15.1); White Blood Count 8.68 10^3/uL (3.29-11.43)
[2024-07-19 03:24] LABS: Alanine Aminotransferase 18 U/L (0-41); Albumin Level 3.3 g/dL (3.5-5.2); Alkaline Phosphatase 95 U/L (40-130); Anion Gap 16.3 (5-19); Aspartate Amino Transferase 32 U/L (0-40); Blood Urea Nitrogen 19 mg/dL (8-23); Calcium 8.5 mg/dL (8.5-10.5); Carbon Dioxide 24 mmol/L (22-29); Chloride 92 mmol/L (98-107); Creatinine Clr Calc Pharmacy 39.1897; Globulin 2.9 g/dL (1.3-4.6); Glucose 122 mg/dL (65-115); Osmolality Calculated 270 mOsm/kg (285-295); Potassium 4.3 mmol/L (3.5-5.1); Sodium 128 mmol/L (136-145); Total Bilirubin 0.7 mg/dL (0.15-1.2); Total Protein 6.2 g/dL (6.6-8.7)
[2024-07-19] MEDS: acetaminophen 500 mg Tablet PO ×3 (08:29→20:13)
[2024-07-19] MEDS: isosorbide mononitrate 20 mg Tablet 30 MG PO (08:29)
[2024-07-19] MEDS: clopidogrel 75 mg Tablet PO (08:30)
[2024-07-19] MEDS: aspirin 81 mg EC Tablet PO (08:30)
--- NOTE | 2024-07-19 08:35 | P.PN_ITS ---
Subjective 2 Subjective: Patient doing well. No chest pain this AM. Had blood transfusion yesterday and hemoglobin is 9.5 this AM. Vitals/I&O/Wt Last Vital Signs Temp 98.4 F 07/19/24 07:50 Pulse 81 07/19/24 07:50 Resp 16 07/19/24 07:50 BP 150/70 07/19/24 07:50 Pulse Ox 95 07/19/24 07:50 O2 Del Method Room Air 07/19/24 07:50 07/18/24 07/19/24 07/19/24 22:59 06:59 14:59 Intake Total 240 / 480 240 / 720 Balance 240 / 480 240 / 720 Weight last 48 hrs Weight 148 lb 4.8 oz Weight 148 lb 3.2 oz Physical Exam 2 Narrative: GENERAL: Patient is alert, awake and oriented x3. [] NECK: No jugular vein distension. [] HEENT: No cyanosis. No icterus. No pallor. [] HEART: Regular S1 and S2. No murmur, rub or gallop. [] LUNGS: Clear to auscultate bilaterally. [] CENTRAL NERVOUS SYSTEM: Grossly nonfocal. [] EXTREMITIES: Lower extremities with 1+ edema bilaterally Data 07/19/24 02:21 07/19/24 02:21 Micro: Microbiology 07/18/24 12:17 Occult Blood (FIT) - Final Stool Routine Collection A&P Assessment and plan (1) New-onset angina: (2) Benign essential hypertension with target blood pressure below 140/90: (3) Dyslipidemia: (4) Blood loss anemia: (5) GI bleed: Qualifiers: GI bleed type/associated pathology: unspecified gastrointestinal hemorrhage type Qualified Code(s): K92.2 - Gastrointestinal hemorrhage, unspecified Plan Patient's repeat Hemoccult test negative. Hemoglobin is staying stable. Had a transfusion done yesterday and her hemoglobin is 9.5. No blood seen in stools. He is on aspirin and Plavix. Plan for coronary angiogram today with possible PCI. Risks and benefits discussed in detail with patient and family. Also mentioned that of possibility of low hemoglobin in future however shared decision made to proceed as EGD not showing abnormalities, stable hemoglobin on dual antiplatelet therapy and repeat hemeoccult test is negative. Continue aspirin and plavix Thank you for involving us with care of this patient. We will continue to follow. Please call with questions. Attestations 2 Medical Necessity Statement*: Care expected to cross 2 midnights. Coding Level of Care Code Acute Code for [facility] Diagnoses New-onset angina I20.9 Benign essential hypertension with target blood pressure below 140/90 I10 Dyslipidemia E78.5 Blood loss anemia D50.0 Gastrointestinal hemorrhage, unspecified gastrointestinal hemorrhage type K92.2 GI bleed type/associated pathology: unspecified gastrointestinal hemorrhage type
--- NOTE | 2024-07-19 09:01 | XACV_ITS ---
Exam Room: [facility] Ht: 173 cm Wt: 67 kg BSA: 1.80 m2 Gender: Male : 1935 Any Known Allergies: Other Exam Priority: Routine Procedure(s): Procedure Description: Diagnostic procedure Procedure Description: Left Heart Catheterization Procedure Description: Coronary Angiography Diagnostic Cath Status: Elective Diagnostic Findings * INDICATION: Worsening angina/abnormal stress test. * RCA has diffuse mild to moderate luminal irregularities. Small to medium sized Posterior Descending Right: obstructive 60-70% stenosis, YARELI: 3 flow. * Circumflex has no significant disease. * Left Main has no disease. * Proximal Left Anterior Descending: minimal 30% stenosis, YARELI: 3 flow. * Coronary angiography shows right dominance. Conclusions 1. Small to medium sized PDA borderline significant stenosis. Distal lesion. We will treat medically at this time.. Recommendations * Aggressive risk factor modification. * Continue aspirin. Continue isosorbide mononitrate and can be uptitrated as needed. * Outpatient cardiology follow up in 2 weeks. Interventional RX Recommendation: medical therapy and/or counseling Diagnostic RX Recommendation: medical therapy and/or counseling Anticoagulation: Heparin Pressures Phase:Rest AO : 86 / 46 ( 65 ) @ 10:41:00 AM 81 / 42 ( 61 ) @ 10:43:00 AM 142 / 55 ( 88 ) @ 10:47:00 AM 143 / 53 ( 88 ) @ 10:47:00 AM LV : 138 / -17 / 17 @ 10:47:00 AM 138 / -16 / 17 @ 10:47:00 AM Valves Phase:DefaultPhase AV : 0.0 @ 9:59:31 AM AV Mean Gradient: 0.0 @ 9:59:31 AM Clinical Evaluation EBL: 5mL-10mL Procedural Details Procedure Consent Obtained. Pre-Procedure Time Out. Identified patient by full name and date of as verbalized by the patient/guarantor. Does the consent match the physician's order: Yes. Accurate & Complete Informed Consent: Yes. Inpatient/Outpatient History & Physical on Chart: Yes. If H&P is completed, is and addenduem needed: No; If yes, is the addendum complete: N/A. Visualize and Verify Site with Patient/Guarantor: N/A. Relevant Radiology Images available: Yes. Pre-op teaching completed and patient verbalized understanding. The risks, benefits, and alternatives of sedation and/or procedure were discussed by physician. The patient agrees to continue. Procedure started. Physician arrived. [facility] Clinical Fraility Score: 5: Mildly Frail. 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 Chest Pain Symptom Assessment: Atypical Angina. Correct patient, site and procedure confirmed by cath team. Current diagnosis: Chest Pain. PERRLA. Strong, equal hand nurse practitioner physicians assistant bilaterally. Lungs clear x 5 lobes. Current Diagnosis : Chest Pain. IV Site on Arrival: 18 gauge in the right anticubital. IV Fluids: 0.9% NaCl at KVO. 0 mL infused prior to biology laboratory assistant. Oxygen started at 2liters/min via nasal canula. right groin was prepped with chloroprep then draped in the usual sterile fashion. right radial was prepped with chloroprep then draped in the usual sterile fashion. Baseline sample Acquired. HR: 81 BPM. Physician scrubbed in. Immediate Pre-Procedure Time Out. Correct Patient: Yes; Correct Procedure: Yes; Correct Site: Yes; Correct Patient Position: Yes; Correct Supplies: Yes; Dried Flammable Prep: Yes; Blood Products Available: N/A;. Lidocaine 1% infiltrated to the right groin. Arterial access obtained. A [address] lucian TIG catheter in over wire. Multiple views taken of left coronary artery. Catheter redirected to the RCA. Multiple views taken of right coronary artery. EDP Sample taken: LV 138/-18,17; HR: 77 BPM; SpO2: 97%. Pullback taken: LV 138/-17,17; AO 142/55(88); Mean: 0mmHg, Peak to Peak: 0mmHg, SEP: 7sec/min; HR: 76 BPM; SpO2: 97%. Catheter removed over the exchange wire. Physician scrubbed out. Vital chart was stopped. A TR Band was successful obtaining hemostatsis at the Right Radial artery insertion site. Post Procedure: Pulses reassessed and unchanged. PERRLA. Strong, equal hand nurse practitioner physicians assistant bilaterally. No VTE prophylaxis required. Medication's Wasted: Nitro = 49.8 mcg. Medication's Wasted: Lidocaine 1% = 18 mL. Medication's Wasted: Other = Fentanyl 75mcg Versed 1 mg. Medication's Wasted: Heparin = 1000 units. Total IV fluids: 30 mL. Post-op diagnosis: Non-obstructive CAD. Complications: None. Estimated blood loss: 5mL-10mL. Responsiveness - Normal response to verbal stimuli; alert and oriented, PERRLA. Airway - Unaffected, no intervention required; spontaneous ventilation. Circulation: W/N/L, pulses unchanged. Nausea/Vomiting: No. Procedure completed. Patient transferred by bed to ICU. Access Site Site: Right Radial artery Sheath Size: 6 Fr Hemostasis Method: TR Band Hemostasis Success: Successful Procedure Medications Start: 9:32 AM Stop: 9:32 AM Medication: Benadryl Amount: 25 mg Route: I.V. Start: 9:33 AM Stop: 9:33 AM Medication: Versed 1 mg and Fentanyl 25 mcg Amount: 1 Route: I.V. Start: 9:39 AM Stop: 9:39 AM Medication: Nitrogylcerin Amount: 200 mcg Route: I.A. Start: 9:40 AM Stop: 9:40 AM Medication: Heparin Amount: 5000 units Route: I.V. I, the attending physician, have reviewed and verified all procedure medications. Yes, all medications given per verbal order History/Risk Factors Hypertension: Yes Dyslipidemia: No Peripheral Arterial Disease (PAD): No Myocardial Infarction (ME): No Obesity: No Renal Disease: No Tobacco Use: Never Prior Interventions PCI: No CABG: No Valve Surgery: No Report Signatures Finalized by Jerome Montana MD on 07/19/2024 11:57 AM
--- NOTE | 2024-07-19 09:31 | W.PM.OPSUD ---
Surgery/Procedure H&P Update DATE OF PROCEDURE: July 19, 2024 DATE H&P PERFORMED: 07/15/24 H&P UPDATE INFORMATION: I have reviewed H&P completed within last 30 days, I have examined patient prior to procedure and Changes to prior documentation as noted here CHANGES TO PREVIOUS DOCUMENTATION: Patient's repeat Hemoccult stool test is negative. His hemoglobin is stable. EGD did not show any bleeding source. Shared decision made with patient and family to proceed with heart cath with possible PCI. Risks and benefits of the procedure were discussed in detail. They understand these and want to proceed PREOP DIAGNOSIS: Worsening angina/abnormal stress test PRIMARY INDICATION FOR PROCEDURE: Worsening angina/abnormal stress test PLANNED PROCEDURE: Operation Date: 07/19/2024 Proposed Procedures Left heart cath with possible percutaneous coronary intervention PATIENT REASSESSED PRIOR TO SEDATION, WITH NO CHANGE NOTED: Yes PHYSICAL EXAM: alert, oriented x 3, clear to auscultation bilaterally and regular rate & rhythm AIRWAY EVAL/ANESTHESIA PLAN: normal airway, ASA III, Local Anesthesia, Risks, benefits & alternatives of sedation and/or procedure discussed and Patient agrees to continue as planned ADDITIONAL INFORMATION: Moderate sedation
--- NOTE | 2024-07-19 10:14 | PC.NURSE ---
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
[2024-07-19] MEDS: pantoprazole 40 mg SDV IVP ×2 (10:43→21:46)
--- NOTE | 2024-07-19 11:26 | P.PN_ITS ---
Subjective 2 Subjective: Status post angiogram this morning. Tolerated procedure well. No stents. Please see Termite Technician report for details. Medications: Reviewed: Yes Medication Review Details: Current Medications Acetaminophen (Acetaminophen 325 Mg Tablet) 650 mg PO Q6H PRN PRN Reason: Mild/Mod Pain Or Temp >/= 101 Last Admin: 07/16/24 08:21 Dose: 650 mg Acetaminophen (Acetaminophen 500 Mg Tablet) 500 mg PO TID [facility] Stop: 07/21/24 14:59 Last Admin: 07/16/24 15:20 Dose: 500 mg Amlodipine Besylate (Amlodipine 5 Mg Tablet) 2.5 mg PO DAILY [facility] Atorvastatin Calcium (Atorvastatin 40 Mg Tablet) 40 mg PO BEDTIME [facility] Last Admin: 07/15/24 20:16 Dose: Not Given Capsaicin (Capsaicin 0.025% Cream 60 Gm) 1 applic TOPICAL QID PRN PRN Reason: PAIN Lactated Ringer's (Lactated Ringers) 1,000 mls @ 75 mls/hr IV .[id number] [facility] Last Admin: 07/16/24 09:34 Dose: 75 mls/hr Sodium Chloride (Sodium Chloride 0.9%) 1,000 mls @ 30 mls/hr IV .Q24H ONE Stop: 07/17/24 12:31 Last Admin: 07/16/24 13:50 Dose: Not Given Isosorbide Mononitrate (Isosorbide Mononitrate 20 Mg Tablet) 30 mg PO DAILY [facility] Lidocaine (Lidocaine 5% Patch) 1 patch TOPICAL [id number] [facility] Nitroglycerin (Nitroglycerin 0.4 Mg Sublingual Tablet) 0.4 mg SUBLINGUAL Q5M PRN PRN Reason: CHEST PAIN Ondansetron HCl (Ondansetron 2 Mg/Ml Sdv 2 Ml) 4 mg IVP Q8H PRN PRN Reason: vomiting, or N/V if npo Ondansetron HCl (Ondansetron 2 Mg/Ml Sdv 2 Ml) 4 mg IVP Q2M PRN PRN Reason: NAUSEA Pantoprazole Sodium (Pantoprazole 40 Mg Sdv) 40 mg IVP Q12H [facility] Last Admin: 07/16/24 08:21 Dose: 40 mg Sodium Chloride (Sodium Chloride 0.9% 100 Ml Bag) 50 ml IV PRN PRN PRN Reason: Blood transfusion prime and flush Stop: 07/17/24 09:23 Vitals/I&O/Wt Last Vital Signs Temp 98.6 F 07/19/24 11:08 Pulse 66 07/19/24 11:08 Resp 12 07/19/24 11:08 BP 115/51 07/19/24 11:08 Pulse Ox 94 07/19/24 11:08 O2 Del Method Room Air 07/19/24 11:08 07/18/24 07/19/24 07/19/24 22:59 06:59 14:59 Intake Total 240 / 480 240 / 720 60 / 60 Balance 240 / 480 240 / 720 60 / 60 Weight last 48 hrs Weight 67.268 kg Weight 67.222 kg Physical Exam 2 Narrative: General: No acute distress, AO x3 HEENT: PERRLA, pupils bilaterally equal and reactive, pallors not present Chest: Normal vesicular breath sounds, no added sounds, equal good air entry bilaterally CVS: S1-S2 regular, no murmurs, no tachycardia, no gallops, no rubs Abdomen: Soft, nontender, no organomegaly, bowel sounds present Neuro: No focal deficits, no facial deformity, AO x3, power 5/5 in all limbs Data 07/19/24 02:21 07/19/24 02:21 Micro: Microbiology 07/18/24 12:17 Occult Blood (FIT) - Final Stool Routine Collection A&P Assessment and plan (1) Acute anemia: Reviewed vitals, hemoglobin, platelet level, T. bili, hemoglobin around 8.5 today. Continue with antiplatelets. Had a bowel movement, no hematochezia or melena. Maintaining blood pressure. No tachycardia. Requested repeat Hemoccult, reviewed, negative. Requested repeat hemoglobin as per discussion with motor vehicle or caravan salesperson. Tentative plans for coronary angiography tomorrow. Repeat hemoglobin is 8, will give him 1 unit of RBC transfusion. Monitor for risk of circulatory overload, other complications with transfusion. Suspect pulmonary dysfunction with gradual loss of RBC which are not being replaced. Will need follow-up with hematology. Will request peripheral smear as well. Reviewed vitals, CMP. Repeat blood counts, CMP. Follow-up peripheral smear. He had a bowel movement which was nonbloody, nonmelanotic. EGD without lesions. Discussed with cardiology, surgery, reviewed EGD note, surgery note, cardiology note, discussed with patient and family. No bleeding source has been found so far. We have discussed obtaining CT abdomen pelvis to assess for any retroperitoneal or other intra-abdominal bleeding. CT obtained and without intra-abdominal hemorrhage. Additionally obtained reticulocyte count, haptoglobin, LDH. Reviewed T. bili, normal. Reticulocyte 2.7%. Haptoglobin not low, LDH not elevated. Without suggestion of hemolysis. Reticulocyte elevated but inadequate for degree of anemia. Discussed bone marrow appears to be not producing adequate supply and response to anemia, likely contributing to the anemia. Otherwise not entirely clear source of where he lost the blood, no gastritis, PUD noted in the stomach. Discussed possibility of Dieulafoy's lesion, although on EGD did not have even any old blood. Discussed possibility of lesion lower down. Discussed consideration of transfer and assessment at higher level of care facility with gastroenterology, consideration of push enteroscopy versus provocative angiography to identify additional source of bleeding. At the same time with degree of anemia without so far significant evidence of GI bleeding apart from positive Hemoccult stool, although he does also reportedly strain while having a BM, possibility of false positive is there as well. We have not seen compelling evidence of significant GI bleeding without any hematochezia, melena, with him having an unremarkable stool yesterday and today. Discussed additionally option with the team and patient family of trial of antiplatelets with monitoring, reassessment for any bleeding with risk of bleeding, reassessment of blood counts, consideration of angiography over the next couple of days if there is no evidence of active bleeding. As he has had quite significant limitation to his functioning he had family would prefer not to defer assessment management of cardiac issue so as to prevent inevitable functional decline and other complications. Proceeding with trial of antiplatelets with monitoring. Continue IV PPI twice daily. Regular diet. With mild iron deficiency anemia, start oral iron supplementation. Reassess blood counts. Follow-up with hematology with regards to bone marrow dysfunction. (2) Angina pectoris: Additional workup of anemia as above. As per decision above trial of aspirin and Plavix. Reassess blood counts. Consideration of coronary angiography if tolerating. Presyncopal episode today after using the restroom and walking back to his bed. Reviewed vitals, CBC, CBC repeated, CMP, EKG on my interpretation with sinus rhythm, pending official read. Discussed with motor vehicle or caravan salesperson. He had received some pain medication overnight due to pain in his right ankle and left knee which she has been dealing with. Additionally has been started on Imdur, amlodipine. Decrease dose of Imdur to 30 mg daily. Held amlodipine. Monitor for risk of hypotension, orthostasis with Imdur. Unremarkable orthostatics. Echocardiogram: abnormal echo with grade 3 diastolic dysfunction, severe elevation of filling pressures. Relative hypokinesis of anterior apical segment. Moderate MVR. Trace to mild AVR. Moderately severe TVR. Mild pulmonary hypertension, RVSP 42 mmHg. Continue statin. Metoprolol was discontinued this morning due to bradycardia. Nitroglycerin as needed for chest pain. He was started on long-acting nitrate with Imdur. Monitor for risk of hypotension with acute anemia, GI bleeding. SCD for VTE prophylaxis. Discussed with nursing, dependency case manager. (3) Positive occult stool blood test: As above. (4) Elevated d-dimer: Possibly secondary to suspected GI bleeding. CT angiogram, no PE. Lower extremity duplex study, negative for DVT. 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 Responding well to capsaicin, apart from on his toes. Percocet worked better for him than hydrocodone. Switched. Lidocaine patch did not work. Discontinue. Symptoms so far resolved after ibuprofen and prednisone. Is supposed to be following up with orthopedics. Plan for today July 19, 2024. Status post angiogram this morning. Please see Termite Technician report for details. Tolerated procedure well. No further evidence of active GI bleeding. Hemodynamics stable today. No further noted episodes of bradycardia since discontinuing beta-blockers. Continuing on aspirin 81 mg p.o. daily. Monitor closely over the next 24 hours postprocedure. If remains stable may be able to discharge home. Attestations 2 Medical Necessity Statement*: Continued admission for post angiogram monitoring Coding Level of Care Code Acute Code for Chg Fwd High MDM includes number and complexity of problems actively addressed during encounter, amount and/or complexity of data reviewed/ordered and described risk of complication, morbidity or mortality of management as documented Diagnoses Acute anemia D64.9 Angina pectoris I20.9 Positive occult stool blood test R19.5 Elevated d-dimer R79.89
[2024-07-19] MEDS: sodium chloride 0.9% 1,000 ML 50 ML IV (12:04)
--- NOTE | 2024-07-19 15:22 | PC.NURSE ---
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 Air is removed slowly as follows: 2ml's of air at 1200, 2ml's of air at 1230, 2ml's of air at 1245, 2ml's of air at 1315, 2ml's of air at 1330, 2ml's of air at 1345, 2ml's of air at 1419. TR-Band is removed at 1520. A dressing of a 2 x 2 and tegaderm is applied. No hematoma is noted. Patient tolerated well.
[2024-07-19] MEDS: capsaicin 0.025% cream 60 gm 1 APPLIC TOPICAL (18:33)
[2024-07-19 20:36] LABS: Blood Urea Nitrogen 17 mg/dL (8-23); Calcium 8.2 mg/dL (8.5-10.5); Carbon Dioxide 17 mmol/L (22-29); Chloride 92 mmol/L (98-107); Glucose 119 mg/dL (65-115); Osmolality Calculated 267 mOsm/kg (285-295); Sodium 127 mmol/L (136-145)
[2024-07-19 20:37] LABS: Anion Gap 22.3 (5-19); Potassium 4.3 mmol/L (3.5-5.1)
--- NOTE | 2024-07-19 21:19 | PC.NURSE ---
Spoke with regarding patient with elevated Bp, 186/83. Patient has running IVF for post cath and recently had his amlodipine d/c. ordered to start norvasc 10mg q24H.
[2024-07-19] MEDS: amlodipine 10 mg Tablet PO (21:46)
[2024-07-20] VITALS (17 sets, daily range): BP systolic 114–172; BP diastolic 57–79; PULSE 61–101; RESP 9–20; TEMP 36.7–36.9; O2SAT 93–98
[2024-07-20 03:51] LABS: Basophils # 0.1 10^3/uL (0.0-0.1); Basophils % 0.6 %; Eosinophils # 0.6 10^3/uL (0.0-0.8); Eosinophils % 7.2 %; Hematocrit 32.8 % (37-53); Lymphocytes # 0.9 10^3/uL (0.8-4.8); Lymphocytes % 11.3 %; Mean Corpuscular Hemoglobin 29.2 pg (27-33); Mean Corpuscular Volume 91.1 fl (82-101); Mean Platelet Volume 9.6 fL (7.4-10.4); Monocytes # 1.1 10^3/uL (0.2-0.9); Neutrophils # 5.42 10^3/uL (1.8-7.7); Neutrophils % 66.4 %; Nucleated Red Blood Cells % 0 %; Platelet Count 239 10^3/cmm (157-399); Red Cell Distribution Width 15.1 % (12.1-15.1); White Blood Count 8.16 10^3/uL (3.29-11.43)
[2024-07-20 04:18] LABS: Alanine Aminotransferase 28 U/L (0-41); Albumin Level 3.3 g/dL (3.5-5.2); Alkaline Phosphatase 124 U/L (40-130); Anion Gap 18.5 (5-19); Aspartate Amino Transferase 41 U/L (0-40); Blood Urea Nitrogen 13 mg/dL (8-23); Calcium 8.7 mg/dL (8.5-10.5); Carbon Dioxide 24 mmol/L (22-29); Chloride 94 mmol/L (98-107); Creatinine Clr Calc Pharmacy 46.3276; Globulin 3.5 g/dL (1.3-4.6); Glucose 125 mg/dL (65-115); Osmolality Calculated 276 mOsm/kg (285-295); Potassium 4.5 mmol/L (3.5-5.1); Sodium 132 mmol/L (136-145); Total Bilirubin 0.5 mg/dL (0.15-1.2); Total Protein 6.8 g/dL (6.6-8.7)
[2024-07-20] MEDS: sodium chloride 0.9% 1,000 ML 50 ML IV (04:22)
[2024-07-20] MEDS: oxyCODONE-APAP 5-325 mg Tablet 1 TAB PO (05:41)
[2024-07-20] MEDS: sennosides-docusate Tablet 2 TAB PO (08:41)
[2024-07-20] MEDS: isosorbide mononitrate 20 mg Tablet 30 MG PO (08:41)
[2024-07-20] MEDS: aspirin 81 mg EC Tablet PO (08:41)
[2024-07-20] MEDS: ferrous sulfate EC 325 mg Tablet PO (08:42)
[2024-07-20] MEDS: acetaminophen 500 mg Tablet PO (08:42)
--- NOTE | 2024-07-20 09:49 | P.DS_ITS ---
Discharge Providers Date of Admission: 07/14/24 17:37 Date of Discharge: July 20, 2024 Attending Provider at Admission: Vick Brito Attending Provider at Discharge: Anastasia Maki MD Primary Care Provider: Cas Lawrence MD Diagnoses at Discharge Discharge Diagnosis (1) Acute anemia: Status: Acute (2) Angina pectoris: Status: Acute (3) Positive occult stool blood test: Status: Acute (4) Elevated d-dimer: Status: Acute Reason for Visit Reason for Visit: anemia,angina Brief History: 88 year old gentleman was referred by wa s PCP for direct admission on 07/14/24. ? 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 On follow-up CBC was found to have acute worsening anemia. ? Hemoccult test that he did at home was positive.? He additionally newly developed over the last week or so episodes of chest pain with minimal exertion.? Previously very active doing various things around the house.? with concern for GI blood loss surgery consulted, underwent EGD, which did not show any obvious bleeding source. With further decline in hemoglobin additionally obtained CT abdomen pelvis to look for retroperitoneal bleed, but none seen.? W/up negative for hemolytic anemia. Low retic count which may corelate with nutritional deficiency vs low production. He received PRBC tranfusion and Hb now stable at 10.5. subsequent FOBT in the hospital negative. Possibly home test false + vs resolved bleeding vs hemorrhoids. He underwent stress test which showed small to moderate area of reversible defect in the inferior and inferoseptal region suggesting ischemia in the distribution of the right coronary artery. He underwent coronary angiography on July 19, 2024 after trial of dual antiplatelet therapy with stable hemoglobin. This showed a small to medium size PDA borderline significant stenosis. Distal lesion. Recommended to treat medically with aspirin and isosorbide mononitrate. Follow-up with cardiology in 1 week. Hospital course otherwise notable for an episode of syncope, thought to be related to possibly bradycardia with heart rate had trended down to 47. Me toprolol has been not initiated for this reason. There have been no further episodes of syncope during this admission. Echocardiogram taken on 828 had shown normal LVEF of 55%, mild LVH, grade 3 cruz tolic dysfunction and severely elevated filling pressures. CTA of the chest was negative for PE upon admission Physical Exam Narrative: General: No acute distress, AO x3 HEENT: PERRLA, pupils bilaterally equal and reactive, pallors not present Chest: Normal vesicular breath sounds, no added sounds, equal good air entry bilaterally CVS: S1-S2 regular, no murmurs, no tachycardia, no gallops, no rubs Abdomen: Soft, nontender, no organomegaly, bowel sounds present Neuro: No focal deficits, no facial deformity, AO x3, power 5/5 in all limbs Discharge Data Studies Completed and Pending Completed Studies During Hospitalization Category Date Time Status CT abdomen pelvis wo con [id number] Routine Cat Scan 07/17/24 10:18 Completed CTA chest [CT angio chest PE protcl 01815] Routine Cat Scan 07/14/24 19:55 Completed CREDIT ADMINISTRATION MANAGER request for service Routine Exams 07/19/24 09:01 Completed CXRP [XR chest 1V portable [id number]] Routine Exams 07/14/24 18:05 Completed Sestamibi Stress Test Request Routine Exams 07/15/24 08:41 Draft NM mary perf SPECT r/s* [id number] Routine Nuc Med 07/15/24 08:45 [place] [id number] Routine Ultrasound 07/14/24 19:55 Completed CV. echo complete* [id number] Routine Ultrasound 07/14/24 19:03 Completed Pending at discharge Category Date Time Status Cardiac Stress Test MIBI [Sestamibi Stress Test Request Exams 07/15/24 08:54 Ordered ] Routine Leukocyte Reduced RBC Routine Lab 07/16/24 09:44 Results Type and Screen Routine Lab 07/16/24 09:44 Results Radiology Impressions Chest X-Ray 07/14/24 18:05 IMPRESSION: No acute findings. Chest CTA 07/14/24 19:55 IMPRESSION: No evidence of pulmonary embolism. Abdomen/Pelvis CT 07/17/24 10:18 IMPRESSION: No intra-abdominal hemorrhage. Laboratory Results WBC 8.16 10^3/uL (3.29-11.43) 07/20/24 03:11 RBC 3.60 10^6/uL (3.85-5.65) L 07/20/24 03:11 Hgb 10.50 g/dL (11.27-16.99) L 07/20/24 03:11 Hct 32.8 % (37-53) L 07/20/24 03:11 MCV 91.1 fl (82-101) 07/20/24 03:11 MCH 29.2 pg (27-33) 07/20/24 03:11 MCHC 32.0 g/dL (30-55) 07/20/24 03:11 RDW 15.1 % (12.1-15.1) 07/20/24 03:11 Plt Count 239 10^3/cmm (157-399) D 07/20/24 03:11 MPV 9.6 fL (7.4-10.4) 07/20/24 03:11 Neut % (Auto) 66.4 % 07/20/24 03:11 Lymph % (Auto) 11.3 % 07/20/24 03:11 [place] % (Auto) 14.0 % 07/20/24 03:11 Eos % (Auto) 7.2 % 07/20/24 03:11 Baso % (Auto) 0.6 % 07/20/24 03:11 Reticulocyte % (Auto) 2.7 % (0.5-2.0) H 07/17/24 03:04 Neut # (Auto) 5.42 10^3/uL (1.8-7.7) 07/20/24 03:11 Lymph # (Auto) 0.9 10^3/uL (0.8-4.8) 07/20/24 03:11 [place] # (Auto) 1.1 10^3/uL (0.2-0.9) H 07/20/24 03:11 Eos # (Auto) 0.6 10^3/uL (0.0-0.8) 07/20/24 03:11 Baso # (Auto) 0.1 10^3/uL (0.0-0.1) 07/20/24 03:11 Nucleated RBC % (auto) 0 % 07/20/24 03:11 Nucleated RBCs # 0.0 /100WBC 07/20/24 03:11 Peripher Smr Path Cons Sent for review 07/18/24 16:08 Haptoglobin 418.0 mg/L (30-200) H 07/17/24 03:04 D-Dimer 1.82 ug/mLFEU (0-0.59) H 07/14/24 19:11 Sodium 132 mmol/L (136-145) L 07/20/24 03:11 Potassium 4.5 mmol/L (3.5-5.1) 07/20/24 03:11 Chloride 94 mmol/L (98-107) L 07/20/24 03:11 Carbon Dioxide 24 mmol/L (22-29) 07/20/24 03:11 Anion Gap 18.5 (5-19) 07/20/24 03:11 BUN 13 mg/dL (8-23) 07/20/24 03:11 Creatinine 1.1 mg/dL (0.7-1.2) 07/20/24 03:11 GFR Calculation Not Reportable 07/20/24 03:11 Glucose 125 mg/dL (65-115) H 07/20/24 03:11 POC Glucose 139 mg/dL (70-110) H 07/16/24 09:15 Calculated Osmolality 276 mOsm/kg (285-295) L 07/20/24 03:11 Calcium 8.7 mg/dL (8.5-10.5) 07/20/24 03:11 Iron 39 ug/dL (59-158) L 07/14/24 19:11 TIBC 197 mcg/dl 07/14/24 19:11 % Saturation 19.7 % (20-50) L 07/14/24 19:11 Unsat Iron Binding 158 ug/dL (112-347) 07/14/24 19:11 Ferritin 483 ng/mL (30-400) H 07/14/24 19:11 Total Bilirubin 0.5 mg/dL (0.15-1.2) 07/20/24 03:11 AST 41 U/L (0-40) H 07/20/24 03:11 ALT 28 U/L (0-41) 07/20/24 03:11 Alkaline Phosphatase 124 U/L (40-130) 07/20/24 03:11 Lactate Dehydrogenase 151 U/L (135-225) 07/17/24 03:04 Troponin T Baseline 20 ng/L (0-15) H 07/14/24 19:11 Troponin T 120 Minute 20.50 ng/L (0-15) H 07/14/24 21:26 Delta Troponin T 0.50 ABS# (0-10) 07/14/24 21:26 Troponin T Hi Sens 6Hr 20.20 ng/L (0-15) H 07/15/24 01:00 Troponin T Hi Sens 6Hr Delta 0.20 ng/L (0-12) 07/15/24 01:00 Total Protein 6.8 g/dL (6.6-8.7) 07/20/24 03:11 Albumin 3.3 g/dL (3.5-5.2) L 07/20/24 03:11 Globulin 3.5 g/dL (1.3-4.6) 07/20/24 03:11 Blood Type O Positive 07/16/24 09:44 Rho(D) Type Rh positive 07/16/24 09:44 Antibody Screen Negative 07/16/24 09:44 Crossmatch See Detail 07/16/24 09:44 Vitals Last Vital Signs Temp 98.1 F 07/20/24 09:00 Pulse 81 07/20/24 09:00 Resp 14 07/20/24 05:41 BP 114/62 07/20/24 09:00 Pulse Ox 96 07/20/24 09:00 O2 Del Method Room Air 07/20/24 09:00 Discharge Plan Discharge Patient Disposition: Home Condition: Stable Prescriptions: New aspirin 81 mg Tablet,Delayed Release (Dr/Ec) 81 mg PO DAILY 30 Days Qty: 30 0RF isosorbide mononitrate 20 mg Tablet 30 mg PO DAILY 30 Days Qty: 30 0RF ferrous sulfate 325 mg (65 mg iron) Tablet,Delayed Release (Dr/Ec) 325 mg PO BREAKFAST 30 Days Qty: 30 0RF pantoprazole [Protonix] 40 mg tablet,delayed release (DR/EC) 40 mg PO DAILY 28 Days Qty: 30 0RF Continued red yeast rice 600 mg capsule 600 mg PO DAILY Rx Instructions: give with meal/snack multivitamin Tablet 1 tab PO QAM Tylenol 325 mg Tablet 325 mg PO QID PRN (Reason: Pain) acetaminophen 500 mg Tablet 500 mg PO Q6H PRN (Reason: Pain) Vitamin C 500 mg Tablet 250 mg PO DAILY vitamin E (dl, acetate) 180 mg (400 unit) Capsule 180 mg PO DAILY Fish Oil 1,000 mg (120 mg-180 mg) Capsule 1 cap PO DAILY tramadol 50 mg tablet 50 mg PO Q8H PRN (Reason: Pain) triamcinolone acetonide 0.1 % cream 1 applic TOPICAL BID PRN (Reason: Itching) Discharge Orders: Discharge Order (Routine); Ordered 07/20/24 Ordered By: Anastasia Maki Referrals: Roxanna Sherwood FNP [Nurse Practitioner] - 1 week Jeremy Dalal MD [Physician] - 1 month Cas Lawrence MD [Primary Care Provider] - 1 week Discharge Diet: Cardiac Discharge Activity: Resume usual activity Patient Instructions: GI Post Discharge Instructions w/ Anesthesia, Opioid Safety Discharge Attestations Time Spent in Discharge Care*: greater than 30 min Quality Metrics Clinical Quality Measures [ No reported AMI, CVA or VTE this stay] Coding Level of Care Code Acute Code for Chg Fwd Diagnoses Acute anemia D64.9 Angina pectoris I20.9 Positive occult stool blood test R19.5 Elevated d-dimer R79.89
--- NOTE | 2024-07-20 10:39 | PC.SOCIAL ---
IMM updated IMM dated and initialed, copy given to patient and placed in chart.
[2024-07-20] MEDS: pantoprazole 40 mg SDV IVP (10:48)
--- NOTE | 2024-07-20 10:50 | PC.NURSE ---
Patient received discharge orders. All follow up appointments made. All IV's removed. Patient verbalized understanding.
--- NOTE | 2024-07-20 11:14 | PC.NURSE ---
Patient taken to main exit by staff via w/c with family member at 1113.
--- NOTE | 2024-07-20 11:15 | PC.NURSE ---
All patient belongings sent with patient. Prescribed medications sent to preferred pharmacy.
--- NOTE | 2024-07-20 12:25 | P.PN_ITS ---
Subjective 2 Subjective: The events of the weekend were reviewed. Patient had the cardiac catheterization yesterday. He was found to have moderate to severe disease in the PDA branch of the right coronary artery. The vessel was found to be small. It was opted to treat him medically. The patient is remaining stable recurrence of chest pain. The hemoglobin seems to be stable. He had 1 unit of blood transfusion. Vitals/I&O/Wt Last Vital Signs Temp 98.1 F 07/20/24 10:51 Pulse 81 07/20/24 10:51 Resp 14 07/20/24 10:51 BP 114/62 07/20/24 10:51 Pulse Ox 96 07/20/24 10:51 O2 Del Method Room Air 07/20/24 09:00 07/19/24 07/20/24 07/20/24 22:59 06:59 14:59 Intake Total 120 / 420 815 / 1235 240 / 240 Output Total 1125 / 1375 1125 / 2500 275 / 275 Balance -1005 / -955 -310 / -1265 -35 / -35 Weight last 48 hrs Weight 148 lb 12.992 oz Weight 148 lb 4.8 oz Physical Exam 2 Narrative: GENERAL: The patient is alert and oriented times three. Not in any acute distress. HEENT: No significant pallor, icterus or lymphadenopathy.Oral cavity: There are no mucous membrane lesions. NECK: Trachea appears to be central. No masses noted. No JVD or thyromegaly appreciated. RESPIRATORY: Chest is symmetrical. No intercostals muscle retraction or any accessory muscle activation. There is no chest wall tenderness. Breath sounds are heard bilaterally. No rales or rhonchi heard. No evidence of any consolidation. BREASTS: Deferred. HEART: The heart sounds are normal. No S3 or S4. Short systolic murmur the left sternal border. No diastolic murmurs.]. No pericardial rub ABDOMEN: No vessel pulsations or distention. No tenderness. No organomegaly appreciated. Bowel sounds are normally heard. : Deferred. RECTAL: Deferred. LYMPHATIC: No lymphadenopathy noted in the neck. EXTREMITIES: The radial arterial puncture site appears to have no hematoma or bleeding. Good distal pulses. MUSCULOSKELETAL: No acute joint deformities or swelling SKIN: There are no significant rashes or ecchymosis NEUROPSYCHIATRIC: The patient is alert and oriented x3. Appears to be in a good mood. No tremors or rigidity noted. Data 07/20/24 03:11 07/20/24 03:11 Other Labs: Laboratory Last Values WBC 8.16 10^3/uL (3.29-11.43) 07/20/24 03:11 RBC 3.60 10^6/uL (3.85-5.65) L 07/20/24 03:11 Hgb 10.50 g/dL (11.27-16.99) L 07/20/24 03:11 Hct 32.8 % (37-53) L 07/20/24 03:11 MCV 91.1 fl (82-101) 07/20/24 03:11 MCH 29.2 pg (27-33) 07/20/24 03:11 MCHC 32.0 g/dL (30-55) 07/20/24 03:11 RDW 15.1 % (12.1-15.1) 07/20/24 03:11 Plt Count 239 10^3/cmm (157-399) D 07/20/24 03:11 MPV 9.6 fL (7.4-10.4) 07/20/24 03:11 Neut % (Auto) 66.4 % 07/20/24 03:11 Lymph % (Auto) 11.3 % 07/20/24 03:11 [place] % (Auto) 14.0 % 07/20/24 03:11 Eos % (Auto) 7.2 % 07/20/24 03:11 Baso % (Auto) 0.6 % 07/20/24 03:11 Reticulocyte % (Auto) 2.7 % (0.5-2.0) H 07/17/24 03:04 Neut # (Auto) 5.42 10^3/uL (1.8-7.7) 07/20/24 03:11 Lymph # (Auto) 0.9 10^3/uL (0.8-4.8) 07/20/24 03:11 [place] # (Auto) 1.1 10^3/uL (0.2-0.9) H 07/20/24 03:11 Eos # (Auto) 0.6 10^3/uL (0.0-0.8) 07/20/24 03:11 Baso # (Auto) 0.1 10^3/uL (0.0-0.1) 07/20/24 03:11 Nucleated RBC % (auto) 0 % 07/20/24 03:11 Nucleated RBCs # 0.0 /100WBC 07/20/24 03:11 Peripher Smr Path Cons Sent for review 07/18/24 16:08 Haptoglobin 418.0 mg/L (30-200) H 07/17/24 03:04 D-Dimer 1.82 ug/mLFEU (0-0.59) H 07/14/24 19:11 Sodium 132 mmol/L (136-145) L 07/20/24 03:11 Potassium 4.5 mmol/L (3.5-5.1) 07/20/24 03:11 Chloride 94 mmol/L (98-107) L 07/20/24 03:11 Carbon Dioxide 24 mmol/L (22-29) 07/20/24 03:11 Anion Gap 18.5 (5-19) 07/20/24 03:11 BUN 13 mg/dL (8-23) 07/20/24 03:11 Creatinine 1.1 mg/dL (0.7-1.2) 07/20/24 03:11 GFR Calculation Not Reportable 07/20/24 03:11 Glucose 125 mg/dL (65-115) H 07/20/24 03:11 POC Glucose 139 mg/dL (70-110) H 07/16/24 09:15 Calculated Osmolality 276 mOsm/kg (285-295) L 07/20/24 03:11 Calcium 8.7 mg/dL (8.5-10.5) 07/20/24 03:11 Iron 39 ug/dL (59-158) L 07/14/24 19:11 TIBC 197 mcg/dl 07/14/24 19:11 % Saturation 19.7 % (20-50) L 07/14/24 19:11 Unsat Iron Binding 158 ug/dL (112-347) 07/14/24 19:11 Ferritin 483 ng/mL (30-400) H 07/14/24 19:11 Total Bilirubin 0.5 mg/dL (0.15-1.2) 07/20/24 03:11 AST 41 U/L (0-40) H 07/20/24 03:11 ALT 28 U/L (0-41) 07/20/24 03:11 Alkaline Phosphatase 124 U/L (40-130) 07/20/24 03:11 Lactate Dehydrogenase 151 U/L (135-225) 07/17/24 03:04 Troponin T Baseline 20 ng/L (0-15) H 07/14/24 19:11 Troponin T 120 Minute 20.50 ng/L (0-15) H 07/14/24 21:26 Delta Troponin T 0.50 ABS# (0-10) 07/14/24 21:26 Troponin T Hi Sens 6Hr 20.20 ng/L (0-15) H 07/15/24 01:00 Troponin T Hi Sens 6Hr Delta 0.20 ng/L (0-12) 07/15/24 01:00 Total Protein 6.8 g/dL (6.6-8.7) 07/20/24 03:11 Albumin 3.3 g/dL (3.5-5.2) L 07/20/24 03:11 Globulin 3.5 g/dL (1.3-4.6) 07/20/24 03:11 Blood Type O Positive 07/16/24 09:44 Rho(D) Type Rh positive 07/16/24 09:44 Antibody Screen Negative 07/16/24 09:44 Crossmatch See Detail 07/16/24 09:44 A&P Assessment and plan (1) Atherosclerotic heart disease: The patient had the cardiac catheterization yesterday. Findings as mentioned above. Currently seems to be stable. May continue on the current medications. Qualifiers: Coronary Disease-Associated Artery/Lesion type: [place] artery [place] vs. transplanted heart: [place] heart Associated angina: with other forms of angina Qualified Code(s): I25.118 - Atherosclerotic heart disease of [place] coronary artery with other forms of angina pectoris (2) Benign essential hypertension with target blood pressure below 140/90: Patient may continue on the current medications. (3) Dyslipidemia: Seems to be tolerating her Lipitor so far well. This may be continued. (4) Blood loss anemia: Status post blood transfusion. Currently hemoglobin is stable. Further GI workup as outpatient. (5) GI bleed: No evidence of any active GI bleed. Further workup as per the primary. Qualifiers: GI bleed type/associated pathology: unspecified gastrointestinal hemorrhage type Qualified Code(s): K92.2 - Gastrointestinal hemorrhage, unspecified Plan Since the patient's cardiac status seems to be stable, may be discharged home from a cardiac standpoint. Patient will be seen by the nurse practitioner at the [facility] in [address] Montana in 1 month. Attestations 2 Medical Necessity Statement*: Disposition as per the primary Coding Level of Care Code 86338 Diagnoses Atherosclerosis of [place] coronary artery of [place] heart with other form of angina pectoris I25.118 Coronary Disease-Associated Artery/Lesion type: [place] artery [place] vs. transplanted heart: [place] heart Associated angina: with other forms of angina Benign essential hypertension with target blood pressure below 140/90 I10 Dyslipidemia E78.5 Blood loss anemia D50.0 Gastrointestinal hemorrhage, unspecified gastrointestinal hemorrhage type K92.2 GI bleed type/associated pathology: unspecified gastrointestinal hemorrhage type
== END 2024-07-20 11:13 | disposition home or self-care (01) | DRG 287 ==
LOC: MEDSURG 07-19 09:17 → ICU 07-19 09:54
PROVIDERS: Internal Medicine; Student in an Organized Health Care Education/Training Program; Admitting Provider Internal Medicine; PCP Family Medicine; Visit Provider Student in an Organized Health Care Education/Training Program
PROC: 0DJ08ZZ Inspection of Upper Intestinal Tract, Via Natural or Artificial Opening Endoscopic (ICD-10-PCS; CPT 43235; principal; 2024-07-16 13:00)
PROC: 4A023N7 Measurement of Cardiac Sampling and Pressure, Left Heart, Percutaneous Approach (ICD-10-PCS; principal; 2024-07-19 09:30)
DX: I25.110 Atherosclerotic heart disease of native coronary artery with unstable angina pectoris (principal); K92.2 Gastrointestinal hemorrhage, unspecified; M10.10 Lead-induced gout, unspecified site; R19.5 Other fecal abnormalities; E78.5 Hyperlipidemia, unspecified; D50.0 Iron deficiency anemia secondary to blood loss (chronic); R00.1 Bradycardia, unspecified; I10 Essential (primary) hypertension; Z86.16 Personal history of COVID-19; Z82.3 Family history of stroke; Z82.49 Family history of ischemic heart disease and other diseases of the circulatory system
CPT/HCPCS: 36415; 36416; 36430; 43235; 71045; 71275; 74176; 78452; 80048; 80053; 80503; 82274; 82728; 82962; 83010; 83540; 83550; 83615; 84484; 85018; 85025; 85045; 85378; 86850; 86900; 86920; 93005; 93017; 93306; 93458; 93970; 96374; 96375; 96376; 99152; 99153; A9500; C1769; C1887; C1894; G0379; J0330; J1200; J1644; J2250; J2470; J2704; J2785; J3010; J3490; J7030; J7120; P9016; Q9967

== ENCOUNTER → 2024-07-27 14:54 | Outpatient (BNVA) | payer MEDICARE, MEDICAID, SELFPAY | PROVIDERS: PCP Family Medicine; Visit Provider Nurse Practitioner Family | DX: I25.10 Atherosclerotic heart disease of native coronary artery without angina pectoris (principal) | CPT/HCPCS: 20600; 80503; 99213; J1100; J3301 ==

== ENCOUNTER 2024-08-17 02:58 | Emergency (ER) | payer MEDICARE, MEDICAID, SELFPAY ==
[2024-08-17] VITALS (19 sets, daily range): BP systolic 136–195; BP diastolic 66–102; PULSE 60–90; RESP 12–19; TEMP 36.6; O2SAT 94–98; BMI 23.8
--- NOTE | 2024-08-17 03:00 | ECG_ITS ---
[facility] Test Date: 2024-08-17 Pat Name: Kwabena Sherwood Department: Room: Gender: Male Oral And Maxillofacial Pathologist: : 1935 Requested By: Arnaud Olvera Order Number: [id number] David MD: Jerome Montana M.D. Measurements Intervals [place] Rate: 78 P: 74 IA: 179 QRS: 67 QRSD: 101 T: 72 QT: 346 QTc: 396 Interpretive Statements SINUS RHYTHM Compared to ECG 07/16/2024 09:21:14 No significant changes Electronically Signed On 08-17-2024 16:30:54 CDT by Jerome Montana M.D. [email or web address] [id number]
--- NOTE | 2024-08-17 04:11 | ED_ITS ---
HPI - Chest Pain 2 General: Chief Complaint: Chest Pain Stated Complaint: back pain Time Seen by Provider: 08/17/24 04:11 History of Present Illness: Patient presents to the ER by EMS for chest pain, left side that radiates to his back, this started about 1230, patient took nitro x 2 at home and it relieved the pain. Patient not have any nausea vomiting shortness of breath or diaphoresis. Twelve-lead by EMS was unremarkable, EMS blood pressure was approximately 170 systolic. Patient refused aspirin. Patient said he was here about a week ago for an angiogram and needed a stent they could not do the stent because he had a GI bleed, patient seeing Dr. Lawrence for the GI bleed. Related Data Home Medications Medication Instructions Recorded Confirmed red yeast rice 600 mg capsule 600 mg PO DAILY 04/25/21 07/27/24 acetaminophen 325 mg tablet 325 mg PO QID PRN Pain 07/15/24 07/27/24 (Tylenol) acetaminophen 500 mg tablet 500 mg PO Q6H PRN Pain 07/15/24 07/27/24 ascorbic acid (vitamin C) 500 mg 250 mg PO DAILY 07/15/24 07/27/24 tablet (Vitamin C) multivitamin 1 tab PO QAM 07/15/24 07/27/24 omega 6-tyh-geh-fish oil 1,000 mg 1 cap PO DAILY 07/15/24 07/27/24 (120 mg-180 mg) capsule (Fish Oil) tramadol 50 mg tablet 50 mg PO Q8H PRN Pain 07/15/24 07/27/24 triamcinolone acetonide 0.1 % 1 applic topical BID PRN Itching 07/15/24 07/27/24 topical cream vitamin E (dl, acetate) 180 mg 180 mg PO DAILY 07/15/24 07/27/24 (400 unit) capsule Previous Rx's Medication Instructions Recorded aspirin 81 mg tablet,delayed 81 mg PO DAILY 30 days #30 tabs 07/20/24 release ferrous sulfate 325 mg (65 mg 325 mg PO BREAKFAST 30 days #30 07/20/24 iron) tablet,delayed release tabs isosorbide mononitrate 20 mg tablet 30 mg (1.5 x 20 mg) PO DAILY 30 07/20/24 days #30 tabs Allergies Allergy/AdvReac Type Severity Reaction Status Date / Time Sulfa (Sulfonamide Allergy Unknown Unknown Verified 08/17/24 04:53 Antibiotics) cephalexin [From Keflex] Allergy lips Verified 08/17/24 04:53 swelling codeine Allergy N/V Verified 08/17/24 04:53 penicillin G Allergy lips swell Verified 08/17/24 04:53 [id number] Reductase AdvReac Intermediate ADR-Cramping Verified 08/17/24 04:53 Inhibitor of the Muscles Review of Systems 2 General: Reports: 10 or more systems reviewed and unremarkable except in HPI and below PFSH ED 2 PFSH: Medical History Hyperlipidemia Arthritis Family History Other CAD (coronary artery disease) Cancer Diabetes Hypertension Social History Smoking and tobacco/nicotine status: never used tobacco/nicotine Physical Exam 2 Const: COMMON NORMALS: no acute distress, average body habitus, patient oriented x3, no limitations, healthy appearing, alert and well nourished HENMT: COMMON NORMALS: normocephalic, external ears normal, Normal external nose present and moist oral mucous membranes; hearing grossly not normal bilaterally (Very hard of hearing) HEAD & SCALP: n ormocephalic NOSE: Normal external nose present EXTERNAL EAR: Yes external ears normal Neck/C-Spine: COMMON NORMALS: no JVD Chest: COMMONS NORMALS: normal inspection of the chest and normal palpation of entire chest wall Resp: COMMON NORMALS: normal respiratory effort, No retractions, No use of accessory muscles and clear to auscultation bilaterally AUSCULTATION: clear to auscultation bilaterally Cardio: COMMON NORMALS: no JVD, regular rate, regular rhythm, S1 normal heart sound present, S2 normal heart sound present, No gallops present (Cardio), No clicks present (Cardio), No murmurs present (Cardio) and No rub (Cardio) R ATE: regular rate RHYTHM: regular rhythm HEART SOUNDS: S1 normal heart sound present and S2 normal heart sound present GI: COMMON NORMALS: Normal to inspection, nondistended, normoactive bowel sounds present, Soft to palpation, non-tender, No hepatosplenomegaly present and no masses PALPATION: Yes Soft to palpation and Yes No hepatosplenomegaly present Neuro: COMMON NORMALS: patient oriented x3 SENSORIUM/ORIENTATION: Yes alert Course 2 Vital Signs: Vital signs: Vital Signs Temperature 97.9 F 08/17/24 03:03 Pulse Rate 60 08/17/24 05:15 Respiratory Rate 13 08/17/24 05:15 Blood Pressure 138/67 08/17/24 05:15 Pulse Oximetry 97 08/17/24 05:15 Oxygen Delivery Me thod Room Air 08/17/24 03:03 MDM - Chest Pain Medical Decision Making Patient had serial EKGs with no changes, serial troponins first and being 29- second being 26 for delta of 3, hemoglobin of 9.9, patient is resting comfortably in bed no acute distress. Family member was there and we discussed lab work with family members and complications of needing a stent versus his GI bleed. Patient be discharged home to continue his current regimen. Differential Diagnosis Unlikely acute massive pulmonary embolism, acute respiratory failure, acute myocardial infarction, cardiac arrest or sudden cardiac Medical Records I reviewed the patient's medical records. Lab Data I reviewed the patient's lab results. 08/17/24 02:49 08/17/24 02:49 Radiology Impressions Chest X-Ray 08/17/24 04:19 IMPRESSION: No acute findings. Laboratory Results WBC 5.91 10^3/uL (3.29-11.43) 08/17/24 02:49 RBC 3.45 10^6/uL (3.85-5.65) L 08/17/24 02:49 Hgb 9.90 g/dL (11.27-16.99) L 08/17/24 02:49 Hct 31.1 % (37-53) L 08/17/24 02:49 MCV 90.1 fl (82-101) 08/17/24 02:49 MCH 28.7 pg (27-33) 08/17/24 02:49 MCHC 31.8 g/dL (30-55) 08/17/24 02:49 RDW 14.7 % (12.1-15.1) 08/17/24 02:49 Plt Count 239 10^3/cmm (157-399) 08/17/24 02:49 MPV 9.3 fL (7.4-10.4) 08/17/24 02:49 Neut % (Auto) 62.3 % 08/17/24 02:49 Lymph % (Auto) 17.6 % 08/17/24 02:49 Jennings % (Auto) 12.4 % 08/17/24 02:49 Eos % (Auto) 6.4 % 08/17/24 02:49 Baso % (Auto) 0.8 % 08/17/24 02:49 Neut # (Auto) 3.68 10^3/uL (1.8-7.7) 08/17/24 02:49 Lymph # (Auto) 1.0 10^3/uL (0.8-4.8) 08/17/24 02:49 Jennings # (Auto) 0.7 10^3/uL (0.2-0.9) 08/17/24 02:49 Eos # (Auto) 0.4 10^3/uL (0.0-0.8) 08/17/24 02:49 Baso # (Auto) 0.1 10^3/uL (0.0-0.1) 08/17/24 02:49 Nucleated RBC % (auto) 0 % 08/17/24 02:49 Nucleated RBCs # 0.0 /100WBC 08/17/24 02:49 PT 13.60 SECONDS (12.1-14.9) 08/17/24 02:49 INR 1.01 (0.8-1.2) 08/17/24 02:49 Sodium 134 mmol/L (136-145) L 08/17/24 02:49 Potassium 4.3 mmol/L (3.5-5.1) 08/17/24 02:49 Chloride 96 mmol/L (98-107) L 08/17/24 02:49 Carbon Dioxide 26 mmol/L (22-29) 08/17/24 02:49 Anion Gap 16.3 (5-19) 08/17/24 02:49 BUN 19 mg/dL (8-23) 08/17/24 02:49 Creatinine 1.3 mg/dL (0.7-1.2) H 08/17/24 02:49 GFR Calculation Not Reportable 08/17/24 02:49 Glucose 109 mg/dL (65-115) 08/17/24 02:49 Calculated Osmolality 281 mOsm/kg (285-295) L 08/17/24 02:49 Calcium 8.9 mg/dL (8.5-10.5) 08/17/24 02:49 Total Bilirubin 0.3 mg/dL (0.15-1.2) 08/17/24 02:49 AST 24 U/L (0-40) 08/17/24 02:49 ALT 15 U/L (0-41) 08/17/24 02:49 Alkaline Phosphatase 95 U/L (40-130) 08/17/24 02:49 Troponin T Baseline 29 ng/L (0-15) H 08/17/24 02:49 Troponin T 120 Minute 25.89 ng/L (0-15) H 08/17/24 04:40 Delta Troponin T -3.11 ABS# (0-10) L 08/17/24 04:40 Total Protein 7.1 g/dL (6.6-8.7) 08/17/24 02:49 Albumin 3.8 g/dL (3.5-5.2) 08/17/24 02:49 Globulin 3.3 g/dL (1.3-4.6) 08/17/24 02:49 All radiology interpretation(s) finalized by discharge Discharge Plan Discharge Patient Disposition: Home Clinical Impression: Acute GI bleeding Chest pain Qualifiers: Chest pain type: unspecified Qualified Code(s): R07.9 - Chest pain, unspecified Condition: Stable Prescriptions: No Action red yeast rice 600 mg capsule 600 mg PO DAILY Rx Instructions: give with meal/snack multivitamin Tablet 1 tab PO QAM Tylenol 325 mg Tablet 325 mg PO QID PRN (Reason: Pain) acetaminophen 500 mg Tablet 500 mg PO Q6H PRN (Reason: Pain) Vitamin C 500 mg Tablet 250 mg PO DAILY vitamin E (dl, acetate) 180 mg (400 unit) Capsule 180 mg PO DAILY Fish Oil 1,000 mg (120 mg-180 mg) Capsule 1 cap PO DAILY tramadol 50 mg tablet 50 mg PO Q8H PRN (Reason: Pain) triamcinolone acetonide 0.1 % cream 1 applic TOPICAL BID PRN (Reason: Itching) aspirin 81 mg Tablet,Delayed Release (Dr/Ec) 81 mg PO DAILY 30 Days Qty: 30 0RF ferrous sulfate 325 mg (65 mg iron) Tablet,Delayed Release (Dr/Ec) 325 mg PO BREAKFAST 30 Days Qty: 30 0RF isosorbide mononitrate 20 mg Tablet 30 mg PO DAILY 30 Days Qty: 30 0RF Discharge Orders: Discharge ED (Routine); Ordered 08/17/24 Ordered By: Arnaud Olvera Referrals: Cas Lawrence MD [Primary Care Provider] - 1 week Patient Instructions: Chest Pain (DC) Activity Restrictions/Additional Instructions: Your lab work showed your hemoglobin was 9.9, your initial troponin was roughly 29 with your 2-hour troponin being about 26 for delta of about 3, this with your and your EKGs being both normal showed you have no damage to your heart currently. Please follow back up with your keno attendant and primary care doctor as once they figure out where your GI bleed is coming from and treated you may benefit from the stent that you need. If your chest pain worsens or returns after 3 nitro please feel free to come to the ER for further evaluation and treatment. Coding Level of Care Code ED Family Resource Specialist for Chio Donohue
--- NOTE | 2024-08-17 04:19 | XRR_ITS ---
PROCEDURE INFORMATION: Exam: XR Chest Exam date and time: 08/17/2024 3:13 AM Age: 88 years old Clinical indication: Pain; Chest pressure; Additional info: Chest pain TECHNIQUE: Imaging protocol: Radiologic exam of the chest. Views: 1 view. COMPARISON: No relevant prior studies available. FINDINGS: Lungs: Mild emphysematous changes. No consolidation. Pleural spaces: Unremarkable. No pleural effusion. No pneumothorax. Heart/Mediastinum: Unremarkable. No cardiomegaly. Bones/joints: Unremarkable. XR/XR chest 1V portable [id number] IMPRESSION: No acute findings.
[2024-08-17 04:25] LABS: Basophils # 0.1 10^3/uL (0.0-0.1); Basophils % 0.8 %; Eosinophils # 0.4 10^3/uL (0.0-0.8); Eosinophils % 6.4 %; Hematocrit 31.1 % (37-53); INR 1.01 (0.8-1.2); Lymphocytes % 17.6 %; Mean Corpuscular HGB Conc 31.8 g/dL (30-55); Mean Corpuscular Hemoglobin 28.7 pg (27-33); Mean Corpuscular Volume 90.1 fl (82-101); Mean Platelet Volume 9.3 fL (7.4-10.4); Monocytes # 0.7 10^3/uL (0.2-0.9); Monocytes % 12.4 %; Neutrophils # 3.68 10^3/uL (1.8-7.7); Neutrophils % 62.3 %; Nucleated Red Blood Cells % 0 %; Platelet Count 239 10^3/cmm (157-399); Red Blood Count 3.45 10^6/uL (3.85-5.65); Red Cell Distribution Width 14.7 % (12.1-15.1); White Blood Count 5.91 10^3/uL (3.29-11.43)
[2024-08-17 04:26] LABS: Alanine Aminotransferase 15 U/L (0-41); Albumin Level 3.8 g/dL (3.5-5.2); Alkaline Phosphatase 95 U/L (40-130); Anion Gap 16.3 (5-19); Aspartate Amino Transferase 24 U/L (0-40); Blood Urea Nitrogen 19 mg/dL (8-23); Calcium 8.9 mg/dL (8.5-10.5); Carbon Dioxide 26 mmol/L (22-29); Chloride 96 mmol/L (98-107); Globulin 3.3 g/dL (1.3-4.6); Glucose 109 mg/dL (65-115); Osmolality Calculated 281 mOsm/kg (285-295); Potassium 4.3 mmol/L (3.5-5.1); Sodium 134 mmol/L (136-145); Total Bilirubin 0.3 mg/dL (0.15-1.2); Total Protein 7.1 g/dL (6.6-8.7); Troponin(5th) Baseline 29 ng/L (0-15)
--- NOTE | 2024-08-17 04:50 | ECG_ITS ---
[facility] Test Date: 2024-08-17 Pat Name: Kwabena Sherwood Department: Room: Gender: Male Account Resolution Specialist: : [id number] Requested By: Arnaud Olvera Order Number: [id number] David MD: Jerome Montana M.D. Measurements Intervals [place] Rate: 71 P: 78 RI: 180 QRS: 67 QRSD: 106 T: 70 QT: 362 QTc: 395 Interpretive Statements SINUS RHYTHM Compared to ECG 07/16/2024 09:21:14 No significant changes Electronically Signed On 08-17-2024 16:26:00 CDT by Jerome Montana M.D. [id number]
[2024-08-17] MEDS: cloNIDine 0.1 mg Tablet PO (04:51)
[2024-08-17 05:11] LABS: Troponin 5 2HR 25.89 ng/L (0-15); Troponin 5 2HR Delta -3.11 ABS# (0-10)
== END 2024-08-17 05:35 | disposition home or self-care (01) ==
PROVIDERS: Emergency Provider Emergency Medicine; PCP Family Medicine
DX: K92.2 Gastrointestinal hemorrhage, unspecified (principal); M54.9 Dorsalgia, unspecified; R07.9 Chest pain, unspecified
CPT/HCPCS: 71045; 80053; 84484; 85025; 85610; 93005; 99285

== ENCOUNTER 2024-09-15 15:00 | Oncology outpatient (recurring) (ONCR) | payer MEDICARE, MEDICAID, SELFPAY ==
[2024-09-13 15:11] VITALS: BP 161/72; PULSE 81; RESP 16; TEMP 37
[2024-09-13] MEDS: iron sucrose 200 MG in sodium chloride 0.9% (100 ml) 100 ML 220 MG IV (15:16)
[2024-09-13 16:00] VITALS: BP 157/63; PULSE 83; RESP 16; TEMP 36.6; O2SAT 98
[2024-09-15] MEDS: iron sucrose 200 MG in sodium chloride 0.9% (100 ml) 100 ML 220 MG IV (15:12)
[2024-09-15 15:57] VITALS: BP 118/72; PULSE 74; RESP 16; TEMP 36.6; O2SAT 96
== END 2024-09-16 23:59 | disposition home or self-care (01) ==
PROVIDERS: PCP Family Medicine; Visit Provider Family Medicine
DX: Z79.899 Other long term (current) drug therapy (principal); D50.8 Other iron deficiency anemias; Z53.9 Procedure and treatment not carried out, unspecified reason
CPT/HCPCS: 96365; J1756

== ENCOUNTER 2024-09-22 15:00 | Oncology outpatient (recurring) (ONCR) | payer MEDICARE, MEDICAID, SELFPAY ==
[2024-09-17 10:25] VITALS: BP 154/66; PULSE 66; RESP 17; TEMP 36.2; O2SAT 99
[2024-09-17] MEDS: iron sucrose 200 MG in sodium chloride 0.9% (100 ml) 100 ML 220 MG IV (10:29)
[2024-09-17 11:10] VITALS: BP 153/57; PULSE 73; RESP 16; TEMP 36.3; O2SAT 97
[2024-09-20] MEDS: iron sucrose 200 MG in sodium chloride 0.9% (100 ml) 100 ML 220 MG IV (13:56)
[2024-09-20 13:57] VITALS: BP 155/73; PULSE 77; TEMP 36.5; O2SAT 98
[2024-09-20 14:32] VITALS: BP 153/67; PULSE 76; RESP 16; TEMP 36.5; O2SAT 98
[2024-09-22 14:35] VITALS: BP 139/63; PULSE 78; RESP 17; TEMP 36.2; O2SAT 95
[2024-09-22] MEDS: iron sucrose 200 MG in sodium chloride 0.9% (100 ml) 100 ML 220 MG IV (14:37)
[2024-09-22 15:18] VITALS: BP 151/63; PULSE 75; TEMP 35.9; O2SAT 97
== END 2024-10-16 23:59 | disposition home or self-care (01) ==
PROVIDERS: PCP Family Medicine; Visit Provider Family Medicine
DX: D50.8 Other iron deficiency anemias; Z79.899 Other long term (current) drug therapy; Z53.9 Procedure and treatment not carried out, unspecified reason
CPT/HCPCS: 96365; J1756

== ENCOUNTER → 2024-12-01 14:47 | Outpatient (BNVA) | payer MEDICARE, MEDICAID, SELFPAY | PROVIDERS: PCP Family Medicine; Visit Provider Nurse Practitioner | DX: M17.0 Bilateral primary osteoarthritis of knee; Z46.89 Encounter for fitting and adjustment of other specified devices | CPT/HCPCS: 73560; 73565 ==

== ENCOUNTER 2024-12-01 16:11 | Outpatient (CLI) | payer MEDICARE, MEDICAID, SELFPAY | END 2024-12-01 16:12 | disposition home or self-care (01) | LOC: SPT 16:12 | PROVIDERS: PCP Family Medicine; Visit Provider Nurse Practitioner | DX: Z46.89 Encounter for fitting and adjustment of other specified devices (principal) | CPT/HCPCS: 20610; 97760; 99204; J1100; J2795; J3301; L1851 ==

== ENCOUNTER → 2024-12-15 11:13 | Outpatient (BNVA) | payer MEDICARE, MEDICAID, SELFPAY | PROVIDERS: PCP Family Medicine; Visit Provider Nurse Practitioner | DX: M17.0 Bilateral primary osteoarthritis of knee | CPT/HCPCS: 20610; 99213; J1100; J2795; J3301 ==

== ENCOUNTER → 2024-12-22 09:29 | Outpatient (BNVA) | payer MEDICARE, MEDICAID, SELFPAY | PROVIDERS: PCP Family Medicine; Visit Provider Nurse Practitioner | DX: M16.11 Unilateral primary osteoarthritis, right hip (principal) | CPT/HCPCS: 73502; 99214 ==

== ENCOUNTER → 2025-06-27 11:27 | Outpatient (BNVA) | payer MEDICARE, MEDICAID, SELFPAY | PROVIDERS: PCP Family Medicine; Visit Provider Dermatology | DX: L82.1 Other seborrheic keratosis (principal); L98.8 Other specified disorders of the skin and subcutaneous tissue; L81.4 Other melanin hyperpigmentation; L82.0 Inflamed seborrheic keratosis; D48.5 Neoplasm of uncertain behavior of skin; L57.0 Actinic keratosis | CPT/HCPCS: 11102; 17000; 17110; 99213 ==